=== PATIENT | female | born 1955 | race Caucasian/White ===

== ENCOUNTER 2017-10-01 11:48 | Emergency (ER) | payer OTHER ==
[~2017-10-01] VITALS: Ht 154.9 cm; Wt 65.8 kg
[2017-10-01] MEDS ORDERED: ASPIRIN325 MG PO (12:12)
[2017-10-01] MEDS ORDERED: FLOMAX0.4 MG PO (13:20)
== END 2017-10-01 13:40 | disposition home or self-care (01) ==
LOC: ED 11:48
DX: N23 Unspecified renal colic (principal); Z79.82 Long term (current) use of aspirin
CPT/HCPCS: 81001; 96372; 99283; J1885

== ENCOUNTER 2018-11-21 18:31 | Emergency (ER) | payer OTHER ==
[~2018-11-21] VITALS: Ht 154.9 cm; Wt 54.4 kg
[~2018-11-21 18:31] MED LIST: ASPIRIN325 MG PO; FLOMAX0.4 MG PO
[2018-11-21] MEDS ORDERED: NORCO 5-325 TA1 EACH PO (21:24)
[2018-11-21] MEDS ORDERED: CRUTCH1 EACH (21:24)
[2018-11-22] MEDS ORDERED: MULTI VITAMIN1 EACH PO (16:57)
== END 2018-11-21 22:08 | disposition home or self-care (01) ==
LOC: ED 18:31
DX: S82.142A Displaced bicondylar fracture of left tibia, initial encounter for closed fracture (principal); Z79.82 Long term (current) use of aspirin; W19.XXXA Unspecified fall, initial encounter
CPT/HCPCS: 73560; 73700; 99284-25

== ENCOUNTER 2018-11-22 16:40 | Inpatient (IN) | payer OTHER ==
[~2018-11-22] VITALS: Ht 154.9 cm; Wt 55.3 kg
[~2018-11-22 16:40] MED LIST changes: +CRUTCH1 EACH; +NORCO 5-325 TA1 EACH PO
[2018-11-22] MEDS ORDERED: MULTI VITAMIN1 EACH PO (16:57)
--- NOTE | 2018-11-22 17:27 | NUR ---
PATIENT HERE TODAY FOR PREADMISSION APPOINTMENT. SHE WILL BE HAVING AN OPEN REDUCTION INTERNAL FIXATION OF LEFT TIBIAL PLATEAU WITH BONE GRAFTING ON 11/29/18. SHE AND HER DAUGHTER LIMA REPORT SHE IS THE CAREGIVER FOR HER AND WAS TALKED TO ABOUT THE SWING BED PROGRAM HERE AT THE HOSPITAL FOR AFTER SURGERY. SHE HAS NO STEPS INTO THE HOME, THERE IS A RAMP. NO STEPS INSIDE THE HOME. THEY HAVE A TUB/SHOWER COMBO WITH A SHOWER CHAIR CURRENTLY. SHE DOES NOT HAVE A PREFERENCE FOR PHYSICAL THERAPY LONG IT IS A PREFERED PROVIDER WITH HER INSURANCE. THIS INFORMATION WILL BE SENT TO DR CALVO OFFICE AND CASE MANAGEMENT FOR FURTHER FOLLOW UP.
[2018-11-29] MEDS ORDERED: ADVIL200 M1 PO (10:36)
[2018-11-29] MEDS ORDERED: PROBIOTIC1 EAC1 PO (10:38)
--- NOTE | 2018-11-29 18:36 | NUR ---
11/29/18 183 Lior Nielson 1811 PT ARRIVED TO PACU. REACTIVE TO STIMULI. [address] AT 9L. VITALS STABLE. 1814 PT DROWSY. 02 DECREASED TO 6 L VIA M. PT RESTING. [address] PT [address] TO VOICE. DR[address] CALVO AT BEDSIDE TALKING WITH PT. PT RATES PAIN 4/10. DENIES NAUSEA. BRACE IN PLACE. CMS INTACT.
--- NOTE | 2018-11-29 18:55 | NUR ---
patient was admitted to the floor on ra with no c/o sob o2 saturations at 98%. pulse ox placed and vitals taken and iv fluid hung. cms intact to the left leg and prerna wrap with brace in place. patient is alert and oriented at this time and pain is tolerable at 4/10.
--- NOTE | 2018-11-29 19:00 | NUR ---
BEDSIDE REPORT RECEIVED FROM OFFGOING RN. PT DENIES NEEDS AT THIS TIME. CALL LIGHT IN REACH.
--- NOTE | 2018-11-29 19:10 | NUR ---
BEDSIDE REPORT RECEIVED FROM OFFGOING RN. PT RESTING IN BED, PARTICIPATES IN REPORT. PT DENIES NEEDS AT THIS TIME. CALL LIGHT IN REACH, ROOM IN VIEW OF RN STATION.
--- NOTE | 2018-11-29 19:20 | NUR ---
CHARGE NURSE REPORT RECEIVED FROM JONATHAN. PT REQUESTING SOME FOOD, WILL NOTIFY ROOM SERVICE MANAGER FOR SOME.
--- NOTE | 2018-11-29 21:31 | NUR ---
PT SITTING UP IN BED, JUST FINISHED [employer]. TOLERATING WELL. PT ASSESSMENT COMPLETE. PT RATES PAIN 04/04. PT EXPRESSES CONCERN REGARDING PRN OXYCODONE, STATES SHE DOES NOT LIKE TO TAKE NARCOTICS. MEDICATION EDUCATION PROVIDED. PRN OXYCODONE ADMINISTERED. PT DENIES NAUSEA OR SOB. PT REPORTS NUMBNESS TO LLE. ABLE TO FEEL SENSATION TO L ANKLE, UNABLE TO ACCURATELY STATE WHERE MACHINE SET UP OPERATOR PAPER GOODS IS TOUCHING ON L FOOT. R FOOT WNL. PEDAL PULSES PALPABLE. SCD'S AND HEEL PROTECTORS IN PLACE. MARIA E HOSE APPLIED TO R FOOT AT THIS TIME. PT WOULD LIKE TO WAIT FOR PAIN PILL TO START WORKING TO APPLY L MARIA E HOSE. CRYOCUFF IN PLACE TO L KNEE. DRESSING C/D/I AND BRACE IN PLACE TO LLE. PT DENIES FURTHER NEEDS AT THIS TIME. CALL LIGHT IN REACH.
--- NOTE | 2018-11-29 23:05 | NUR ---
PT ASSISTED TO BEDSIDE COMMODE AND BACK TO BED WITH 2PA AND FWW. PT TOLERATED WELL. PT RATES PAIN 4/10, STATES THAT PAIN IS TOLERABLE AT THIS TIME. MARIA E PACHECO APPLIED TO LLE AT THIS TIME. PT DENIES FURTHER NEEDS AT THIS TIME. CALL LIGHT WITHIN REACH.
--- NOTE | 2018-11-30 00:37 | NUR ---
PT ASSESSMENT COMPLETE. PT STATES PAIN WELL CONTROLLED AT THIS TIME. PT DENIES NAUASEA AND SOB. DRESSING TO LLE C/D/I. BRACE IN PLACE TO L KNEE. MARIA E HOSE, SCD'S, AND HEEL PROTECTORS IN PLACE BILATERALLY. PT ABLE TO FEEL TOUCH TO TOP OF FOOT, CANNOT ACCURATELY REPORT TOUCH TO TOES ON LLE. PEDAL PULSES PALPABLE. PT DENIES FURTHER NEEDS AT THIS TIME. CALL LIGHT WITHIN REACH.
--- NOTE | 2018-11-30 03:51 | NUR ---
PT ASSISTED TO COMMODE AND BACK TO BED WITH 2 PA AND FWW. PT TOLERATED VERY WELL, ABLE TO MOVE HER LEG WITH MINIMAL ASSITANCE. PT REPORTS SELF LIMITING WATER INTAKE DUE TO NOT WANTING TO GET UP TO BATHROOM. EDUCATION PROVIDED, ANOTHER BAG OF MAINTENANCE FLUIDS INITIATED. PT STATES SHE WILL DRINK MORE WATER, PROVIDED. PT DENIES FURTHER NEEDS AT THIS TIME. CALL LIGHT IN REACH.
--- NOTE | 2018-11-30 07:30 | OR ---
[facility] [address], [place] [address] Signed DATE OF OPERATION: 11/29/2018 SURGEON: Nathalie Asif MD PREOPERATIVE DIAGNOSIS: Schatzker II left tibial plateau fracture. POSTOPERATIVE DIAGNOSIS: Schatzker II left tibial plateau fracture. PROCEDURE PERFORMED: Open reduction and internal fixation of left tibia. SPECIMEN COLLECTOR: KRISTIN Rucker. Cami was present in critical positioning, retraction, and wound closure. ANESTHESIA: Spinal per Anesthesia. TOURNIQUET TIME: 46 minutes. IMPLANTS: A 6-hole proximal tibia plate with two 4.5 screws and four 5.0 screws. BRIEF HISTORY: Meghan is a 63-year-old female with history of a fall while trying to lift her . He fell against her leg creating a valgus stress. This was last week. Risks and benefits of operative treatment were discussed with her. Once she consented, the knee swelling gone down, we brought her to the operating room. After adequate anesthesia, she was placed on the operating room table and placed on a hip bump, a well-padded proximal thigh tourniquet was placed as well. The leg was then prepped and draped in a standard sterile fashion and exsanguinated using Esmarch bandage. Tourniquet inflated to 225 mmHg. The hockey stick incision was made along the proximal lateral tibia created through skin and subcutaneous tissue. The anterior compartment was opened up and the muscle was elevated off the tibia. The transverse arthrotomy was then made in the lateral compartment and the lateral meniscus was elevated to allow visualization of the lateral tibial plateau. I could see the depressed segments after cleaning out all of the blood clot. We found the anterior split in the tibial condyle and opened that up Electronically Signed By: NATHALIE ASIF MD 11/30/18 0730 PATIENT NAME: MEGHAN SANCHES OPERATIVE REPORT DATE OF : 57 REPORT #: [id number] PHYSICIAN: NATHALIE ASIF MD PCP: NO PRIMARY CARE PHYSICIAN REPORT IS CONFIDENTIAL AND NOT TO BE RELEASED WITHOUT AUTHORIZATION [facility] [address], [place] [address] Signed just a little bit to release pressure on the fragments. Then using a bone tamp we were able to elevate the tibial plateau under direct visualization until it was just slightly hyperreduced. Once this was accomplished, the lateral wall was closed back down and a 2-0 K-wire was passed across the tibia in the subarticular position. The plate was then threaded over this and held in position using a single screw distally and image intensifier was brought in, radiographs showed good reduction and good alignment of the plate. The three proximal locking screws were then placed and the oblique screw was placed and another screw was placed distally. Once these were accomplished, final radiograph showed good reduction, good placement of the screws and plate, and reduction was maintained. The wound was copiously irrigated with antibiotic solution including the arthrotomy. The lateral meniscus was allowed to fall back down into position. The arthrotomy was closed using #1 Vicryl. The fascia was then closed using 0 Stratafix, subcutaneous tissue with 2-0 Stratafix, and the skin with rahat. Wound was dressed with a Mepilex dressing, ABD, and Hira wrap. The patient was awakened and taken to recovery room in satisfactory condition. All sponge, needle, and instrument counts were correct. Nathalie Asif MD BA/MODL /[id number] Copies: ~ Electronically Signed By: NATHALIE ASIF MD 11/30/18 0730 PATIENT NAME: MEGHAN SANCHES DELMIS OPERATIVE REPORT DATE OF : 57 REPORT #: [id number] PHYSICIAN: NATHALIE ASIF MD PCP: NO PRIMARY CARE PHYSICIAN REPORT IS CONFIDENTIAL AND NOT TO BE RELEASED WITHOUT AUTHORIZATION
--- NOTE | 2018-11-30 07:38 | NUR ---
0710 report received from Doreen INMAN. Call light and personal items within reach. Pt states she is comfortable.
--- NOTE | 2018-11-30 07:47 | NUR ---
[employer] INTERVETION AND COMMUNICATION FORM RECIEVED REGARDING DUPLICATE SENNOSITES 1 TAB PO BID. CLARRIFIED THIS WITH DR. CALVO WHO STATED THAT ONE OF THESE ORDERS IS TO BE D/C'D.
--- NOTE | 2018-11-30 08:26 | NUR ---
PATIENT SITTING UP IN BED EATING BREAKFAST. CALL LIGHT IN REACH. NO FURTHER NEEDS AT THIS TIME.
--- NOTE | 2018-11-30 09:25 | NUR ---
PATIENT IN BED RESTING. CRYO FILLED. FRESH WATER GIVEN. CALL LIGHT IN REACH. NO FURTHER NEEDS AT THIS TIME.
--- NOTE | 2018-11-30 11:10 | NUR ---
Pt resting in her bed stating her pain remains at a 6/10 and was medicated for pain. Dressing remains CDI and cryo cuff is in place with ice water in the cuff. Teds and scds remain in place.
--- NOTE | 2018-11-30 11:55 | NUR ---
0930 PT HAS BEEN TAKING PO FLUIDS WELL AND THE IV WAS SALINE LOCKED PER ORDERS.
--- NOTE | 2018-11-30 12:40 | NUR ---
Pt resting in her bed eating her lunch. She states her knee pain is a 3 and her left ankle pain is a 5 after going for a walk. The ankle appers normal at this time. Rocio states her pain is acceptable to her at this time.
--- NOTE | 2018-11-30 13:15 | NUR ---
MED REC COMPLETE
--- NOTE | 2018-11-30 13:29 | NUR ---
PATIENT IN BED. BP HIGHER THEN USUAL, RN NOTIFIED. FRESH WATER GIVEN. CRYO FILLED. CALL LIGHT IN REACH. NO FURTHER NEEDS AT THIS TIME.
--- NOTE | 2018-11-30 16:22 | NUR ---
PT STATES HER LEFT KNEE AND ANKLE PAIN IS A 6, PT WAS MEDICATED ORDERED. X-RAY RESULTS ON THE LEFT ANKLE PENDING. PT ASSISTED TO THE BEDSIDE COMMODE WHICH SHE TOLERATED WELL. PT BACK TO BED AT THIS TIME.
--- NOTE | 2018-11-30 19:05 | NUR ---
SHIFT REPORT RECEIVED. PATIENT REPORTS PAIN IN HER ANKLE AND REQUEST AN ICE PACK WHICH WAS PROVIDED TO HER. SHE FEELS THAT HER LEFT FOOT IN NUMB WHEN SHE FLEXES AT THE ANKLE. FOOT HAS SENSATION WHEN ASSESSED BY MYSELF BUT PATIENT REPORTS THIS "NUMB" FEELING OR PRESSURE. CMS INTACT. WILL CONTINUE TO MONITOR.
--- NOTE | 2018-11-30 21:00 | NUR ---
EVENING MEDS GIVEN PER ORDER. PATIENT REPORTS PAIN IN HER LEFT ANKLE DESCRIBED "A TIGHT BAND, DEEP IN MY ANKLE". SHE ALSO REPORTS THAT SHE FEELS A NUMB SENSATION WHEN SHE FLEXES HER LEFT ANKLE. CMS INTACT, NO SWELLING NOTED. BRACE IN PLACE. CRYO ON LEFT KNEE. PAIN THERE IS MINIMAL 11/04. WOUND CONVERED WITH SURGICAL DRESSING AND DENI WRAP. PATIENT DENIES NAUSEA. ABD IS SOFT. LUNGS ARE CLEAR. VS STABLE. ASSISTED PATIENT UP TO THE [facility], NON-WEIGHT BEARING IN LEFT LEG. PATIENT TOLERATED VERY WELL. ASSISTED PATIENT BACK TO BED, ELEVATED LEFT LEG ON [address] ON L ANKLE. PATIENT DENIES FURTHER NEEDS AT THIS TIME.
--- NOTE | 2018-11-30 22:30 | NUR ---
PRN PAIN MEDS PROVIDED FOR 7/10 PAIN LEFT ANKLE. PATIENT REPORTED SOME RELIEF AFTER THE EXTREMITY WAS REPOSTIIONED. PATIENT IS VERY EMOTIONAL ABOUT HER SITUTATION WITH HER AT HOME, SAT WITH PATIENT TO PROVIDE ACTIVE LISTENING AND REASSURANCE. WWILL DISCUSS WITH CASE MANAGEMENT IN THE MORNING. PATIENT DENIES ANY NEEDS AT THIS TIME. CALL LIGHT IN REACH.
--- NOTE | 2018-12-01 00:40 | NUR ---
1 PA TO THE BEDSIDE COMMODE USING WALKER AND BACK TO BED. CALL LIGHT IN REACH.
--- NOTE | 2018-12-01 01:00 | NUR ---
PATIENT BACK IN BED AFTER USING CAMMOD. ASSURED BRACE AND CRYO WERE IN PLACE. PATIENT REPORTS SOME RELIEF IN HER ANKLE PAIN WITH PRN TORADOL AND THE ICE. PATIENT STATES "IT'S JUST HARD TO GET COMFORTABLE AND SLEEP WHILE LAYING ON MY BACK". ASSISTED HER WITH PILLOW PADDING UNDER HER ARMS AND HIPS TO PROVIDE EXTRA SUPPORT. PATIENT REPORTS FEELING COMFORTABLE. CALL LIGHT IN REACH.
--- NOTE | 2018-12-01 05:15 | NUR ---
PATIENT PROVIDED WITH PRN TORADOL FOR PAIN 01/02. PATIENT REPORTS PAIN "ALL OVER". PATIENT REQUESTING TO TAKE HER BRACE OFF. WILL CONTACT THE MD. ICE PACKED REAPPLIED TO ANKLE. CRYO REFILLED. PATIENT DENIES TOILETING NEEDS. CMS INTACT IN LEFT LOWER EXTREMITIES. DENI WRAP REAPPLIED DUE TO LOOSENING FROM TRANSFERS. ABD AND MEPILEX IN PLACE.
--- NOTE | 2018-12-01 06:03 | NUR ---
SPOKE WITH . OKAY TO LEAVE BRACE OFF WHILE PATIENT IN BED. MAKE SURE TO PLACE IT ON FOR TRANSFERS.
--- NOTE | 2018-12-01 06:06 | NUR ---
PATIENT RESTED ON AND OFF THROUGHOUT THE SHIFT. PAIN CONTROLLED WITH PRN TORADOL AND COLD THERAPY. 1PA W/FWW TO BSC. PATIENT NON-WEIGHT BEARING, TOLERATES WELL. DRESSING CDI. BRACE WHILE IN BED. MARIA E HOSE BILATERALLY, SCDS ON RIGHT LEG. IV SL. VS STABLE. URINE OUTPUT QS.
--- NOTE | 2018-12-01 07:05 | NUR ---
RECIEVED BEDSIDE REPORT FROM HENNY CASTANEDA. PT IN BED, SLEEPING SOUNDLY. PERSONAL SUPPLIES AND CALL LIGHT IN REACH.
--- NOTE | 2018-12-01 07:59 | NUR ---
PT PLANS TO RETURN HOME AND STATES SHE WILL BE AGAIN CARING FOR HER DISABLED .
--- NOTE | 2018-12-01 09:24 | NUR ---
PT UP, AMBULATING IN HALLWAY WITH P.T., USING GAIT BELT AND FWW, WITH MINIMAL ASSIST.
--- NOTE | 2018-12-01 12:04 | NUR ---
PT REPORTED 4/10 PAIN TO LEFT KNEE. GAVE TORADOL 15 MG IV PRN. PT SITTING UP IN BED EATING LUNCH. DRESSING TO LEFT KNEE C/D/I. PT REPORTS SENSTATION INTACT TO LLE, BUT REPORTS "A LITTLE" TINGLING TO LEFT FOOT. PEDAL PULSES PALPABLE, STRONG, CAP REFILL LESS THAN 2 SECONDS.
--- NOTE | 2018-12-01 13:25 | NUR ---
PT SITTING UP IN BED. REPORTS PAIN IS WELL CONTROLLED TO LEFT KNEE, DENIES LEFT ANKLE PAIN. DRESSING TO LEFT KNEE C/D/I. PT'S PEDAL PULSES PALPABLE, MOTION TO LEFT LEG WEAK, PT REPORTS SENSATION INTACT, BUT CONTINUES TO REPORT "A LITTLE BIT OF TINGLING" TO LEFT FOOT.
--- NOTE | 2018-12-01 15:55 | NUR ---
PT UP, AMBULATING IN [place] WITH PHYSICAL THERAPY WITH FWW AND GAIT BELT, TOLERANCE GOOD. PT BACK TO ROOM, TO BED. DENIED NEED FOR PAIN MEDICATION, REPORTED THAT SHE IS COMFORTABLE AT THIS TIME. DENIED NEEDS. PERSONAL SUPPLIES AND CALL LIGHT IN REACH.
--- NOTE | 2018-12-01 19:15 | NUR ---
SHIFT REPORT RECEIVED. PATIENT ON THE PHONE. DENIES NEEDS AT THIS TIME.
--- NOTE | 2018-12-01 21:05 | NUR ---
PATIENT PROVIDED WITH SCHEDULED SENNS, SHE HAS NOT HAD A BM THIS VISIT BUT REPORTS THAT IS NORMAL FOR HER. SHE DENIES FEELING CONSTIPATED OR BLOATED. ABD IS SOFT, NONTENDER, WITH ACTIVE BOWEL SOUNDS. ENCOUARGED PATIENT TO DRINK PLENTY OF FLUIDS WITH HER MEDS. PATIENT REPORTS GOOD PAIN CONTROL WITH SCHEDULED TORADOL AND COLD THERAPY. CMS INTACT IN LEFT LEG. DRESSING CDI. BRACE ON AT THIS TIME. MARIA E HOSE BILATERALLY. SCD ON RIGHT. HELL PROTECTORS IN USE. PATIENT IS SL, IV SITE WNL. LUNGS ARE CLEAR. PATIENT'S IS IN THE ED AT THIS TIME AND PATIENT REQUEST SHE GO SEE HIM. DISCUSSED WITH COMPUTER ARTIST. PATIENT'S DAUGHTER WILL GO DOWN TO VISIT HIM AND UPON HIS ADMISSION OR DISCHARGE SHE WILL VISIT HIM, NOT IN THE ED. PATIENT IS VERY AGREEABLE TO THIS PLAN. PATIENT DENIES FURTHER NEEDS. CALL LIGHT IN REACH.
--- NOTE | 2018-12-01 22:54 | NUR ---
V/S AND I&O DONE AND CHARTED. 1PA TO THE BATHROOM AND BACK TO BED USING WALKER. CRYO AND ICE WATER REFILLED. SCD, HEEL PROTECTOR AND CRYO ARE BACK ON. SIDE TABLE AND CALL LIGHT WITHIN REACH.
--- NOTE | 2018-12-01 23:19 | NUR ---
PATIENT RESTING IN BED. SHE REPORTS FEELING STRESSED ABOUT HER 'S HEALTH HE IS IN OUR ED. PROVIDED REASSURANCE. PATIENT DENIES ANY PAIN. NO NEEDS AT THIS TIME.
--- NOTE | 2018-12-02 | NUR ---
SCHEDULED TORADOL PROVIDED. PATIENT REPORTS PAIN 6/10 IN LEFT KNEE AND ANKLE. COLD THERAPY IN PLACE. PATIENT DENIES FURTHER NEEDS. CALL LIGHT IN REACH.
--- NOTE | 2018-12-02 01:18 | NUR ---
ASSISTED PATIENT UP TO THE BATHROOM. PATIENT AMBULATED WITH FWW AND TOE TOUCH ONLY ON LEFT LEG. PATIENT TOLERATED WELL. PATIENT'S IS NOW IN THE CCU, USING WC THIS RN ACCOMPANIED PATIENT OVER TO VISIT HER .
--- NOTE | 2018-12-02 01:45 | NUR ---
PATIENT RETURNED TO HER ROOM. ASSISTED INTO BED. POSITIONED FOR COMFORT. COLD THERAPY IN USE. SCD AND HEEL PROTECTORS ON. PATIENT REPORTS BEING COMFORTABLE. CALL LIGHT IN REACH.
--- NOTE | 2018-12-02 04:00 | NUR ---
PATIENT APPEARS TO BE SLEEPING SOUNDLY. RR 16. CALL LIGHT IN REACH.
--- NOTE | 2018-12-02 06:23 | NUR ---
PATIENT'S PAIN WAS WELL CONTROLLED WITH SCHEDULED TORADOL AND COLD THERAPY. PATIENT AMULATES WELL W/FWW, NON-WEIGHT BEARING ON LEFT FOOT. BRACE ON FOR TRANSFERS. DRESSING ON LEFT LEG, MEPILEX AND ABD COVERED WITH DENI WRAP. LEFT HEEL PROTECTORS, MARIA E HOSE, AND SCD IN USE. CRYO CUFF AND ICE PACKS TO AFFECTED AREAS. PATIENT TOLERATING REGULAR DIET.
--- NOTE | 2018-12-02 08:00 | NUR ---
RECEIVED REPORT AT 0700, FOUND PT IN BED SOMEWHAT AWAKE. PT ASKED TO VISIT HER IN CCU TODAY.
--- NOTE | 2018-12-02 09:42 | NUR ---
FAXED CHART NOTES TO [facility] TO AUTH FOR SWING BED. RECIEVED 7 DAY AUTH STARTING 12/03/18 FROM [facility].
--- NOTE | 2018-12-02 10:33 | NUR ---
PATIENT SITTING UP IN CHAIR. VITAL SIGNS AND I&O DONE. LOW BLOOD PRESSURE. RN NOTIFIED. LINENS CHANGED. CALL LIGHT WITHIN REACH. NO OTHER NEEDS AT THIS TIME
--- NOTE | 2018-12-02 11:07 | NUR ---
BP THIS AM ARE A LITTLE LOW. PT HAS BEEN RUNNING LOW WHILE HERE. PAIN IS WELL CONTROLLED. DRESSING ON LEFT KNEE IS C/D/I. PEDIS PULSE IS +1 BUT TOES ARE WARM TO TOUCH. THERE IS STILL SOME EDEMA ON HER LEFT ANKLE. PT WANTS TO VISIT IN CCU TODAY.
--- NOTE | 2018-12-02 11:33 | NUR ---
SBA FROM CHAIR TO BED. PT WITH MINIMAL ASSIST. BRACE ON LEFT LEG. CRYOCUFF PLACED, HEEL PROTECTORS AND SCD TO RLE. CALL LIGHT IN REACH. WATER REFRESHED. DENIES FURTHER NEEDS.
--- NOTE | 2018-12-02 12:19 | NUR ---
PT IS IN CCU VISITING HER AND EATING LUNCH WITH HIM. PT WALKED FROM HER ROOM TO CCU.
--- NOTE | 2018-12-02 13:33 | NUR ---
PATIENT SITTING UP IN CHAIR. FRIEND IN ROOM. VITAL SIGNS AND I&O DONE. CALL LIGHT WITHIN REACH. NO OTHER NEEDS AT THIS TIME
--- NOTE | 2018-12-02 14:00 | NUR ---
PAIN IS MINIMAL AT THIS TIME. PT HAS VISITORS IN ROOM. NO NEW CONCERNS NOTED SO FAR.
--- NOTE | 2018-12-02 14:46 | NUR ---
PATIENT SITTING UP IN CHAIR. FRIEND IN ROOM. CRYO FILLED. CALL LIGHT WITHIN REACH. NO OTHER NEEDS AT THIS TIME
--- NOTE | 2018-12-02 17:33 | NUR ---
PT OVERALL DID VERY WELL TODAY. PT WAS ABLE TO WALK FROM HER ROOM TO THE CCU AND BACK. PAIN IS WELL CONTROLLED WITH PRN AND SCHEDULED PAIN MEDICATIONS. TORADOL IV 15MG WAS THE ONLY PAIN MEDICATION GIVEN TODAY. THERE IS STILL AN ISSUE IN REGARDS TO HER REFUSING TO GO TO A SNF. HE THINKS SHE WILL TAKE CARE OF HIM. IT SEEMS THAT THIS PT HAS TOURBLE TELLING HER THAT SHE IS NOT ABLE TO CARE FOR HIM WHILE SHE IS HEALING. THIS ISSUE IS BEING ADDRESSED BY CASE MANAGEMENT.
--- NOTE | 2018-12-02 18:18 | NUR ---
PATIENT IN BED. FRIENDS IN ROOM. VITAL SIGNS AND I&O DONE. CALL LIGHT WITHIN REACH. NO OTHER NEEDS AT THIS TIME
--- NOTE | 2018-12-02 18:51 | NUR ---
PT CALL LIGHT ON. PT REQUESTS ASSISTANCE UP TO RESTROOM. THIS RN TO BEDSIDE. SBA, FWW UP TO RESTROOM. PT VOIDS WITHOUT ISSUE. NEW SOCKS PROVIDED. PT BACK TO BED. CRYO CUFF, SCD'S IN PLACE. PT WOULD LIKE TO VISIT HER LATER THIS EVENING. SOFT IRON INSPECTOR WILL BE NOTIFIED. NO ADDITIONAL REQUESTS OR COMPLAINTS. BED RAILS UP. CALL LIGHT WITHIN REACH.
--- NOTE | 2018-12-02 19:02 | NUR ---
IN ROOM FOR REPORT, PT IS AWAKE IN BED TALKING ON THE PHONE. SHE DENIES NEEDS AT THIS TIME. CALL LIGHT IS CLOSE.
--- NOTE | 2018-12-02 21:08 | NUR ---
VITALS AND I&OS DONE AND CHARTED. HELPED PT TO THE BATHROOM AND BACK TO BED WITH HER FWW. CRYO AND ICE PACK FILLED. FRESH ICE WATER GIVEN. BEDSIDE TABLE AND CALL LIGHT IN REACH.
--- NOTE | 2018-12-02 21:35 | NUR ---
IN ROOM TO ADMINISTER MEDICATIONS AND ASSESS PT. SHE REPORTS PAIN LOW AT THIS TIME AND IT IS WELL CONTROLLED BY TORADOL. HER DRESSING IS CDI AT THIS TIME AND SHE HAS THE BRACE ON IN BED. SHE WOULD LIKE TO KEEP IT ON FOR A WHILE AND MAY WANT IT OFF LATER. SHE REPORTS A TIGHT SENSATION IN HER LEFT ANKLE. AES IS IN PLACE AT THIS TIME AND SHE IS TAKING A BREAK FROM THE HEEL PROTECTORS PER HER REQUEST. CRYOCUFF IS ALSO IN PLACE. SHE WOULD LIKE TO VISIT HER IN CCU LAMAR, ADVISED PT WE WILL CHECK WITH HIS CCU NURSE. PT DENIES FURTHER NEEDS AND CALL LIGHT IS CLOSE.
--- NOTE | 2018-12-02 23:05 | NUR ---
PT CALLED D/T SCD'S BEEPING, SHE DENIES FURTHER NEEDS. CALL LIGHT IS CLOSE.
--- NOTE | 2018-12-03 00:05 | NUR ---
WOKE PT TO ADMINISTER IV TORADOL. PT RATES PAIN AT 2/10 AT THIS TIME. SHE DENIES FURTHER NEEDS AND CALL LIGHT IS CLOSE.
--- NOTE | 2018-12-03 02:59 | NUR ---
HELPED PT TO THE BATHROOM AND BACK TO THE CHAIR WITH HER FWW. CRYO FILLED. BEDSIDE TABLE AND CALL LIGHT IN REACH.
--- NOTE | 2018-12-03 03:09 | NUR ---
pt UP TO TOILET, ASSISTED BY CHRIS SÁNCHEZ. CRYOCUFF ICE REFRESHED BY CHRIS, GONZALO. ASSESSMENT DONE. pt STATED PAIN 2/10. SLIGHT EDEMA NOTED BEHIND LEFT ANKLE. DENI WRAP CDI, BRACE ON. CRYOCUFF APPLIED. AES, SCD ON. REFUSED HEEL PROTECTORS AT THIS TIME. UP IN CHAIR. NO REQUESTS AT THIS TIME. CALL LIGHT WITHIN REACH.
--- NOTE | 2018-12-03 06:04 | NUR ---
VITALS AND I&OS DONE AND CHARTED. CRYO FILLED. FRESH WATER GIVEN. BEDSIDE TABLE AND CALL LIGHT IN REACH. PT NEEDS NOTHING MORE AT THIS TIME.
--- NOTE | 2018-12-03 06:12 | NUR ---
MEDICATION DUE AND ADMINISTERED. pt REPORTED 2/10 PAIN. NO REQUESTS AT THIS TIME. CALL LIGHT WITHIN REACH.
--- NOTE | 2018-12-03 06:29 | NUR ---
pt RESTED ON AND OFF DURING SHIFT. PAIN CONTROLLED WITH SCHEDULED MEDICATIONS. DRESSING CDI. CRYOCUFF, BRACE, AES, AND SCD ON. REFUSED HEEL PROTECTORS AT THIS TIME. VOIDING QS. 1PA, FWW. IV SL. TOLERATING REGULAR DIET. PLAN TO TRANSITION TO SWING BED. USES CALL LIGHT APPROPRIATELY.
--- NOTE | 2018-12-03 08:00 | NUR ---
RECEIVED REPORT AT 0700 AND FOUND PT SLEEPING IN BED. NO NEW CONCERNS NOTED AT THIS TIME.
--- NOTE | 2018-12-03 09:39 | NUR ---
PATIENT IN BED. OCCUPATIONAL THERAPIST IN ROOM. VITAL SIGNS AND I&O DONE. CALL LIGHT WITHIN REACH. NO OTHER NEEDS AT THIS TIME.
--- NOTE | 2018-12-03 12:34 | DS ---
[facility] [address], [place] [address] Signed ADMISSION DATE: 11/29/2018 DISCHARGE DATE: 12/03/2018 ADMISSION DIAGNOSIS: Left Schatzker II tibial plateau fracture. DISCHARGE DIAGNOSIS: Left Schatzker II tibial plateau fracture. PROCEDURE PERFORMED THIS HOSPITALIZATION: ORIF, left tibia. BRIEF HISTORY: Meghan is a 63-year-old female who suffered a ground level fall while trying to lift her fracturing her tibia. She had radiographs and CT scan, which confirmed the split depression fracture. Once the swelling go down, risks and benefits of operative treatment discussed with her and she elected to proceed. DESCRIPTION OF PROCEDURE: Once consent was obtained, she was taken to the operating room. After adequate anesthesia, she underwent the above-named procedure and tolerated well. She was taken to the recovery room and subsequently to the orthopedic floor. She was placed on oxycodone and Toradol for pain control and with Tylenol and did well. She was seen by Physical Therapy, and was slow to mobilize and unsteady in her gait and strength. She was kept on DVT prophylaxis of SCDs, TEDs, and Xarelto 10 mg p.o. daily. She will be discharged to swing bed for continued inpatient rehab to work on balance, strength, gait with a walker. Toe-touch weightbearing on her left lower extremity. She also did have some ankle pain and swelling that was evaluated with an x-ray showed negative for fracture and just mild swelling along the posterior lateral border. Because she is nonweightbearing on that side, we will let this heal without too much intervention. Nathalie Asif MD BA/DEANGELO /[id number] Electronically Signed By: NATHALIE ASIF MD 12/03/18 1234 PATIENT NAME: MEGHAN SANCHES DELMIS DISCHARGE SUMMARY DATE OF : 57 REPORT #: [id number] PHYSICIAN: NATHALIE ASIF MD PCP: NO PRIMARY CARE PHYSICIAN REPORT IS CONFIDENTIAL AND NOT TO BE RELEASED WITHOUT AUTHORIZATION [address] [address] Signed Copies: ~ Electronically Signed By: NATHALIE ASIF MD 12/03/18 1234 PATIENT NAME: MEGHAN SANCHES DISCHARGE SUMMARY DATE OF : 57 REPORT #: [id number] PHYSICIAN: NATHALIE ASIF MD PCP: NO PRIMARY CARE PHYSICIAN REPORT IS CONFIDENTIAL AND NOT TO BE RELEASED WITHOUT AUTHORIZATION
== END 2018-12-03 09:30 | disposition swing bed (61) | DRG 494 ==
LOC: DSVR 11-29 10:20 → MS 11-29 12:00
PROVIDERS: ADMIT Specialist
PROC: 3E0T3BZ Introduction of Anesthetic Agent into Peripheral Nerves and Plexi, Percutaneous Approach (ICD-10-PCS; 2018-11-29)
PROC: 3E0T33Z Introduction of Anti-inflammatory into Peripheral Nerves and Plexi, Percutaneous Approach (ICD-10-PCS; 2018-11-29)
PROC: 0QSH04Z Reposition Left Tibia with Internal Fixation Device, Open Approach (ICD-10-PCS; principal; 2018-11-29 12:00)
DX: S82.142A Displaced bicondylar fracture of left tibia, initial encounter for closed fracture (principal); G89.18 Other acute postprocedural pain; R26.81 Unsteadiness on feet; M25.572 Pain in left ankle and joints of left foot; M25.472 Effusion, left ankle; W03.XXXA Other fall on same level due to collision with another person, initial encounter; Z87.440 Personal history of urinary (tract) infections; Z79.1 Long term (current) use of non-steroidal anti-inflammatories (NSAID); Z79.82 Long term (current) use of aspirin; Z79.899 Other long term (current) drug therapy
CPT/HCPCS: 01480; 36415; 73560; 73610; 80048; 85025; 97110; 97116; 97162; 97166; 97530; C1713; C1769; J0690; J1100; J1885; J2250; J2370; J2405; J2704; J2795; J3010; J3475; J7120

== ENCOUNTER 2018-12-03 09:30 | Inpatient (IN) | payer OTHER ==
[~2018-12-03] VITALS: Ht 154.9 cm; Wt 55.3 kg
[~2018-12-03 09:30] MED LIST changes: +ADVIL200 M1 PO; +MULTI VITAMIN1 EACH PO; +PROBIOTIC1 EAC1 PO
--- NOTE | 2018-12-03 10:00 | NUR ---
PT WAS MADE SWG BED AT 0930. PT HAS NO NEW ISSUES OR CONCERNS. PAIN IS 0/10 AT THIS TIME. PEDIS PULSES ARE +2, LEFT ANKLE EDEMA IS LESS TODAY AND PT IS NOT BOTHERED BY IT ANYLONGER. NO NEW CONCERNS AT THIS TIME.
--- NOTE | 2018-12-03 10:05 | NUR ---
PATIENT IN BED. OCCUPATIONAL THERAPIST IN ROOM. VITAL SIGNS AND I&O DONE. CALL LIGHT WITHIN REACH. NO OTHER NEEDS AT THIS TIME
--- NOTE | 2018-12-03 10:25 | NUR ---
SWING BED ACCOUNT; MED REC COMPLETE WHEN PATIENT WAS IN-PATIENT STATUS.
--- NOTE | 2018-12-03 12:00 | NUR ---
PATIENT ASKS FOR WALK TO CCU TO VISIT HER FOR A FEW MINUTES. PATIENT BACKS TO ROOM. PATIENT BACKS TO CHAIR. CALL LIGHT WITHIN REACH. NO OTHER NEEDS AT THIS TIME
--- NOTE | 2018-12-03 12:00 | NUR ---
PT IS WALKING IN HALLWAY. PT IS DOING WELL.
--- NOTE | 2018-12-03 12:30 | NUR ---
PT TO BE SWING TODAY. SITTING IN CHAIR-ALERT AND ORIENTED. PT QUICKLY BEGAN TO SHARE WITH ME THE CHALLENGE SHE FACES WITH HER AND HIS SPECIAL NEEDS AND THE ATTITUDE HE HAS. I LET HER SHARE, GAVE SOME QUALITY CONTROL ANALYST AND HAD PRAYER WITH HER. WILL CONTINUE TO FOLLOW
--- NOTE | 2018-12-03 12:43 | NUR ---
Spoke with Rocio, she lives at home with spouse who is disabled and requires extensive care. She feels she can go home and care for self with assist from friends. Would recommend OT as pt is toe touch only and will need help to cook and complete house hold chores at home. Pt states she has also had difficulty in the past accepting help in the past. She has a daughter but does not want to burder her. Does mot have a PCP at this time, and will notify [facility] to assist her.
--- NOTE | 2018-12-03 14:05 | NUR ---
PT AT THIS TIME HAS VISITORS IN ROOM.
--- NOTE | 2018-12-03 14:33 | NUR ---
PATIENT'S CRYO FILLED. NO OTHER NEEDS AT THIS TIME
--- NOTE | 2018-12-03 14:36 | NUR ---
PATIENT HAS FRIENDS VISITING HER. PATIENT UP IN HER CHAIR.
--- NOTE | 2018-12-03 15:11 | NUR ---
PATIENT SITTING UP IN CHAIR. BEDBATH DONE. PATIENT USING A CLEAN GOWN. CALL LIGHT WITHIN REACH. PATIENT WALKS TO USE BATHROOM. PATIENT BACKS TO CHAIR. CALL LIGHT WITHIN REACH. NO OTHER NEEDS AT THIS TIME
--- NOTE | 2018-12-03 16:01 | NUR ---
PT WALKED WITH PT AND DID VERY WELL. PT IS BACK IN ROOM. PAIN IS 1/10. NO NEW CONCERNS.
--- NOTE | 2018-12-03 16:25 | NUR ---
PT OVERALL DID WELL TODAY. PAIN IS VERY WELL CONTROLLED. PT IS MOVING WELL, DRESSING IS C/D/I. HOME SITUATION STILL NEEDS ATTENTION AND NEEDS TO BE FIGURED OUT. NO NEW CONCERNS NOTED.
--- NOTE | 2018-12-03 16:31 | NUR ---
TOOK OVER CARE OF THIS SWING BED PATIENT AT THIS TIME, PATIENT IS UP TO THE CHAIR WITH HER LEGS ELEVATED CRYO CUFF IN PLACE AND DRESSING TO THE LEFT KNEE THAT IS CDI. PATIENT DENIES ANY PAIN OR NEEDS AT THIS TIME AND CMS IS INTACT.
--- NOTE | 2018-12-03 17:46 | NUR ---
PATIENT IN BED. I&O DONE. CALL LIGHT WITHIN REACH. NO OTHER NEEDS AT THIS TIME
--- NOTE | 2018-12-03 20:06 | NUR ---
ASSESSMENT AND MEDICATION DUE. pt STATED PAIN 2/10 "DISCOMFORT". DEMONSTRATED ABILITY TO AMBULATE SAFELY. NO IV. DRESSING CDI, CRYOCUFF, AES, SCD, HEEL PROTECTORS ON. CALL LIGHT WITHIN REACH. WILL GO VISIT DOWN [place].
--- NOTE | 2018-12-04 01:14 | NUR ---
ROUNDED ON pt. RESTING WITH EYES CLOSED, RESPIRATIONS REGULAR, RATE = 16. CALL LIGHT WITHIN REACH.
--- NOTE | 2018-12-04 03:48 | NUR ---
ROUNDED ON pt. RESTING IN CHAIR WITH EYES CLOSED, RESPIRATIONS REGULAR, RATE = 16. CALL LIGHT WITHIN REACH.
--- NOTE | 2018-12-04 04:51 | NUR ---
ROUNDED ON pt. RESTING IN CHAIR WITH EYES CLOSED, RESPIRATIONS REGULAR. RATE = 14. CALL LIGHT WITHIN REACH.
--- NOTE | 2018-12-04 05:34 | NUR ---
pt RESTED MOST OF NIGHT. DRESSING CDI. BRACE ON, CRYOCUFF, AES, SCD, AND HEEL PROTECTORS ON. NO IV ACCESS PER MD. TOLERATING REGULAR DIET. PAIN CONTROLLED. AMBULATED IN HALLS X1. USES CALL LIGHT APPROPRIATELY.
--- NOTE | 2018-12-04 06:09 | NUR ---
ROUNDED ON pt. REFRESHED CRYOCUFF. DISCUSSED "DISCOMFORT" MANAGEMENT AND SLEEPING. pt UP TO TOILET. WHITEBOARD UPDATED. CALL LIGHT WITHIN REACH.
--- NOTE | 2018-12-04 07:30 | NUR ---
PATIENT REPORT RECEIVED FROM MERVAT INMAN AT THIS TIME. PATIENT IS RESTING IN BED WITH NO QUESTIONS OR CONCERNS CURRENTLY. PAIN IS TOLERABLE AND BRACE TO LEFT LEG IS ON CMS IS INTACT.
--- NOTE | 2018-12-04 09:11 | NUR ---
PATIENT AMBULATED WITH PHYSICAL THERAPY TO HER HUSBANDS ROOM, FROM 114 TO 108. SHE IS STEADY ON HER FEET WHEN USING A FWW TO AMBULATE. BRACE HAS STAYED ON THE LEFT LEG WITH DRESSING TO THE LEFT KNEE CDI WITH DENI WRAP, CMS INTACT. BREAKFAST ORDERED AND ASSESSMEMT COMPLETE
--- NOTE | 2018-12-04 10:30 | NUR ---
PATIENT SITTING UP IN BED. VITAL SIGNS AND I&O DONE. LOW DYASTOLIC BLOOD PRESSURE. RN NOTIFIED. CALL LIGHT WITHIN REACH. NO OTHER NEEDS AT THIS TIME
--- NOTE | 2018-12-04 14:00 | NUR ---
PATIENT IN BED. PATIENT WALKS TO USE BATHROOM USING A WALKER. ONE PERSON ASSISTING. PATIENT BACKS TO BED. I&O DONE. ICE WATER GIVEN. CALL LIGHT WITHIN REACH. NO OTHER NEEDS AT THIS TIME
--- NOTE | 2018-12-04 15:59 | NUR ---
dressing to left leg wrapped with a garbage sack and patient up to the shower with cutting room supervisor assistance. patient tolerating shower well and denies any pain.
--- NOTE | 2018-12-04 16:13 | NUR ---
PATIENT IN BED. PATIENT WALKS TO BATHROOM TO TAKE A SHOWER. PATIENT TAKES A SHOWER. ONE PERSON ASSISTING. PATIENT USING A CLEAN GOWN. PATIENT BACKS TO BED. ICE WATER GIVEN. WARM BLANKET PROVIDED. CALL LIGHT WITHIN REACH. NO OTHER NEEDS AT THIS TIME
--- NOTE | 2018-12-04 17:28 | NUR ---
PATIENT BACK TO BED AFTER USING THE TOILET, SHE DENIES ANY PAIN AT THIS TIME AND DINNER TRAY GIVEN TO HER AT THIS TIME.
--- NOTE | 2018-12-04 18:05 | NUR ---
PATIENT SITTING UP IN CHAIR. I&O DONE. CALL LIGHT WITHIN REACH. NO OTHER NEEDS AT THIS TIME
--- NOTE | 2018-12-04 20:36 | NUR ---
ASSESSMENT AND MEDICATIONS DUE. pt REPORTED PAIN OF 11/04. STATED THAT SHE HAS "DISCOMFORT" THAT KEEPS HER AWAKE AT NIGHT. ASKED FOR ADVIL. ASSESSMENT DONE. MEDICATION GIVEN (SEE MAR). DRESSING CDI. BRACE, CRYOCUFF, AES, HEEL PROTECTORS, SCD ON. AMBULATED X1. CALL LIGHT WITHIN REACH.
--- NOTE | 2018-12-04 20:37 | NUR ---
CALLED DR CALVO FOR PRN PAIN MEDICATION. NEW ORDER INPUT.
--- NOTE | 2018-12-04 21:23 | NUR ---
VITALS AND I&OS DONE AND CHARTED. FRESH ICE WATER GIVEN. HELPED HER TO THE BATHROOM AND BACK TO BED. BEDSIDE TABLE AND CALL LIGHT IN REACH.
--- NOTE | 2018-12-04 22:27 | NUR ---
GAVE PRN PAIN MED PER REQUEST TO DECREASE "DISCOMFORT" FOR SLEEP. CALL LIGHT WITHIN REACH. NO OTHER REQUESTS AT THIS TIME.
--- NOTE | 2018-12-05 00:26 | NUR ---
ROUNDED ON pt. RESTING WITH EYES CLOSED, RESPIRATIONS REGULAR, RATE = 14. CALL LIGHT WITHIN REACH.
--- NOTE | 2018-12-05 01:46 | NUR ---
SCD ALARMING. pt DISCONNECTED FOR A MOMENT TO REPOSITION. SCD ON. pt REPORTED "I SLEPT WELL FOR A FEW HOURS BUT THEN I FELT THE TYLENOL JUST SITTING ON MY STOMACH". OFFERED FOOD, pt ACCEPTED A BOWEL OF CEREAL. CRYOCUFF REFRESHED. CALL LIGHT WITHIN REACH.
--- NOTE | 2018-12-05 04:10 | NUR ---
ROUNDED ON pt. RESTING WITH EYES CLOSED, RESPIRATIONS REGULAR. RATE = 18. CALL LIGHT WITHIN REACH.
--- NOTE | 2018-12-05 05:06 | NUR ---
pt RESTED ON AND OFF DURING SHIFT. STATED THE TYLENOL HELPED HER GET TO SLEEP. DRESSING CDI. BRACE, CRYOCUFF, AES, SCD, AND HEEL PROTECTORS ON. AMBULATED IN [place] X1. NO IV PER ORDER. VOIDING QS. INDEPENDENT WITH FWW. TOLERATING REGULAR DIET. USES CALL LIGHT APPROPRIATELY.
--- NOTE | 2018-12-05 09:24 | NUR ---
PT UP WORKING WITH PHYSICAL THERAPIST IN THERAPY ROOM, WORKING ON DOING STAIRS.
--- NOTE | 2018-12-05 11:00 | NUR ---
PT SITTING AT HER 'S BEDSIDE IN ROOM 108, HOLDING 'S HAND. DENIES NEEDS.
--- NOTE | 2018-12-05 11:52 | NUR ---
PATIENT WALKS IN HALLWAY USING A WALKER TO VISIT HER IN ROOM 108 AND BACKS TO HER ROOM AND BED.
--- NOTE | 2018-12-05 13:23 | NUR ---
PATIENT RESTING IN BED. I&O DONE. ICE WATER GIVEN. CALL LIGHT WITHIN REACH. NO OTHER NEEDS AT THIS TIME
--- NOTE | 2018-12-05 14:10 | NUR ---
PT IN BED, AWAKE, ALERT, ORIENTED X 4. DENIED NEEDS. REPORTED THAT PAIN TO LEFT LEG IS WELL CONTROLLED. CMS TO LLE INTACT, DRESSING C/D/I.
--- NOTE | 2018-12-05 17:47 | NUR ---
PATIENT IN BED. FAMILY IN ROOM. PATIENT WALKS TO USE BATHROOM. ONE PERSON ASSISTING. I&O DONE. CALL LIGHT WITHIN REACH. NO OTHER NEEDS AT THIS TIME
--- NOTE | 2018-12-05 17:59 | NUR ---
PT DOING WELL, PARTICIPATED IN PHYSICAL THERAPY THIS SHIFT. PT UP WITH FWW WITH BRACE ON LLE, WITH 1 PERSON MINIMAL TO STANDBY ASSIST. DRESSING TO LLE C/D/I, CMS INTACT. PT REPORTED PAIN WELL CONTROLLED THROUGHOUT SHIFT, DENIED NEED FOR PRN ANALGESICS. PT ON RA, BOWEL TONES ACTIVE X 4 QUADRANTS, BM THIS SHIFT, HRR, LUNGS CTA. PT ALERT, ORIENTED X 4.
--- NOTE | 2018-12-05 19:34 | NUR ---
RECEIVED REPORT FROM HENNY BAINS. pt ALERT AND AWAKE VISITING. PAIN 2 AT THIS TIME. PLAN MADE FOR EVENING. WHITEBOARD UPDATED. CALL LIGHT WITHIN REACH.
--- NOTE | 2018-12-05 21:33 | NUR ---
pt VISITING . PERMISSION TO DO ASSESSMENT AND GIVE MEDS. ASSESSMENT DONE. DRESSING CDI. BRACE ON. pt AMBULATED IN CANT[place] TO 'S ROOM WITHOUT ISSUE WITH FWW. MEDICATIONS GIVEN (SEE MAR). PROVIDED CEREAL AND MILK. STATED PAIN 12/05. NO FURTHER REQUESTS AT THIS TIME. CALL LIGHT WITHIN REACH.
--- NOTE | 2018-12-05 22:40 | NUR ---
FRESH ICE WATER GIVEN AND CRYO FILLED.
--- NOTE | 2018-12-05 23:59 | NUR ---
ROUNDED ON pt. RESTING WITH EYES CLOSED, RESPIRATIONS REGULAR, RATE = 16. CALL LIGHT WITHIN REACH.
--- NOTE | 2018-12-06 02:38 | NUR ---
ROUNDED ON pt. RESTING WITH EYES CLOSED, RESPIRATIONS REGULAR, RATE = 16. CRYOCUFF REFRESHED. CALL LIGHT WITHIN REACH.
--- NOTE | 2018-12-06 04:15 | NUR ---
ROUNDED ON pt. RESTING WITH EYES CLOSED, RESPIRATIONS REGULAR. RATE = 16. CALL LIGHT WITHIN REACH.
--- NOTE | 2018-12-06 05:02 | NUR ---
pt RESTED MOST OF SHIFT. TYLENOL AT HS FOR "DISCOMFORT". DRESSING CDI. BRACE, CRYOCUFF, AES, SCD, AND HEEL PROTECTORS ON. AMBULATED IN [place] X1. NO IV PER ORDER. VOIDING QS. INDEPENDENT WITH FWW. TOLERATING REGULAR DIET. USES CALL LIGHT APPROPRIATELY.
--- NOTE | 2018-12-06 07:28 | NUR ---
RECIEVED BEDSIDE REPORT FROM HENNY GONZALEZ. PT IN BATHROOM. DENIED NEEDS AT THIS TIME.
--- NOTE | 2018-12-06 07:55 | NUR ---
PT IN BED, PROVIDED WITH FRESH COFFEE PER PT'S REQUEST. PT RATED PAIN TO LEFT KNEE 1/10, DENIED NEED FOR PRN ANALGESIC. PERSONAL SUPPLIES AND CALL LIGHT IN REACH. CMS TO LLE INTACT. BRACE TO LLE IN PLACE, DRESSING TO LEFT KNEE C/D/I.
--- NOTE | 2018-12-06 09:40 | NUR ---
PT AMBULATING IN HALLWAYS WITH PHYSICAL THERAPY, TOLERATING WELL. USING FWW, HAS BRACE ON TO LLE.
--- NOTE | 2018-12-06 10:17 | NUR ---
PATIENT SITTING UP IN BED COLORING. FRESH WATER GIVEN. CRYO FILLED. CALL LIGHT IN REACH. NO FURTHER NEEDS AT THIS TIME.
--- NOTE | 2018-12-06 12:28 | NUR ---
PT IN BED, EATING LUNCH. DENIED NEEDS. DRESSING TO LLE C/D/I. PT REPORTED THAT PAIN TO LEFT KNEE IS TOLERABLE, DENIED NEED FOR PRN ANALGESIC. PESONAL SUPPLIES AND CALL LIGHT IN REACH.
--- NOTE | 2018-12-06 12:59 | NUR ---
PT'S IN TO VISIT WITH PT, SITTING AT PT'S BEDSIDE. PT HAS PERSONAL SUPPLIES AND CALL LIGHT IN REACH. PT ATE 95% OF HER LUNCH. DENIED NEEDS.
--- NOTE | 2018-12-06 13:38 | NUR ---
PT UP AMBULATING IN HALLS. WORKING HARD WITH Sophie GAVE ENCOURAGEMENT, SHE THANKED ME, WILL CONTINUE TO FOLLOW NEEDED
--- NOTE | 2018-12-06 14:48 | NUR ---
PATIENT IN BED TALKING ON PHONE. FRESH WATER GIVEN. CRYO FILLED. CALL LIGHT IN REACH. NO FURTHER NEEDS AT THIS TIME.
--- NOTE | 2018-12-06 18:05 | NUR ---
PT DOING WELL. UP WITH FWW WITH STANDBY ASSIST, WORE BRACE TO LLE THROUGHOUT SHIFT. PT TOLERATED AMBULATION WELL, COMPLIANT WITH ONLY PLACING 25% OR LESS OF WEIGHT TO LLE. WORKED WITH PHYSICAL THERAPY THIS SHIFT. PT DENIED NEED FOR PRN ANALGESIA THIS SHIFT, REPORTED PAIN WELL CONTROLLED WITH SCHEDULED CELEBREX. PT TOLERATED REGULAR DIET WELL. LUNGS CLEAR TO AUSCULTATION, HEART RATE REGULAR, BOWEL TONES ACTIVE. PT HAD 2 BMs THIS SHIFT. URINE OUTPUT QUANTITY SUFFICIENT. PT ALERT, ORIENTED X 4. DRESSING TO LEFT KNEE C/D/I, CMS TO LLE INTACT.
--- NOTE | 2018-12-06 19:10 | NUR ---
RECEIVED REPORT FROM HENNY BAINS. pt IN CHAIR VISITING WITH . NO REQUESTS AT THIS TIME.
--- NOTE | 2018-12-06 22:27 | NUR ---
ASSESSMENT AND MEDICATIONS DUE. pt RESTING IN BED. ASSESSMENT DONE. DRESSING CDI. BRACE, CRYOCUFF, AES, SCD, HEEL PROTECTORS ON. CEREAL AND MILK PROVIDED. MEDICATIONS GIVEN (SEE MAR). CALL LIGHT WITHIN REACH. NO FURTHER REQUESTS AT THIS TIME.
--- NOTE | 2018-12-07 00:26 | NUR ---
ROUNDED ON pt. RESTING WITH EYES CLOSED, RESPIRATIONS REGULAR. RATE = 16. CALL LIGHT WITHIN REACH.
--- NOTE | 2018-12-07 03:17 | NUR ---
ROUNDED ON pt. RESTING WITH EYES CLOSED, RESPIRATIONS REGULAR, RATE = 18. CALL LIGHT WITHIN REACH.
--- NOTE | 2018-12-07 07:25 | NUR ---
RECIEVED BEDSIDE REPORT AT PT'S DOORWAY PT WAS SLEEPING SOUNDLY. THIS RN IN TO PT'S ROOM TO CHECK ON PT, NO S/S DISTRESS/DISCOMFORT NOTED. WHITE BOARD UPDATED. PERSONAL SUPPLIES AND CALL LIGHT IN REACH.
--- NOTE | 2018-12-07 08:04 | NUR ---
PT DOING IN BED EXERCISES. BREAKFAST TRAY JUST NOW DELIVERED. PT RATES PAIN TO LEFT KNEE /. DRESSING TO LEFT KNEE C/D/I, CMS TO LLE INTACT. PT HAS PERSONAL SUPPLIES AND CALL LIGHT IN REACH. PT DECLINED MIRILAX THIS AM, SHE HAS BEEN HAVING MORE THAN ONE STOOL A DAY, AND THEY HAVE BEEN SOFT TO LOOSE. PT DECLINED FLU VACCINE, STATED THAT SHE DOES NOT WANT TO GET THIS.
--- NOTE | 2018-12-07 09:07 | NUR ---
PT ATE 100% OF HER BREAKFAST. IN BED, PERSONAL SUPPLIES AND CALL LIGHT IN REACH.
--- NOTE | 2018-12-07 10:15 | NUR ---
PT AMBULATING IN HALLWAY WITH JORGE WITH FWW, TOLERATING WELL. RATED PAIN TO LEFT KNEE 1-2/10, DENIED NEEDS.
--- NOTE | 2018-12-07 13:21 | NUR ---
PT SITTING UP IN BED, TALKING ON PHONE. DENIES NEEDS. PERSONAL SUPPLIES AND CALL LIGHT IN REACH. CRYO CUFF TO LEFT KNEE.
--- NOTE | 2018-12-07 14:38 | NUR ---
PT SEEMS TO BE DOING BETTER TODAY. SHE IS WORKING HARD TO IMPROVE AND GET BACK ON HER FEET-LITERALLY. SHE REQUESTED THE HIPAA RESTRICTIONS BE REMOVED ON HER ADMISSION. WILL FOLLOW UP WITH ADMITTING. EXTENDED A BLESSING, WILL FOLLOW
--- NOTE | 2018-12-07 14:46 | NUR ---
PT IN THERAPY ROOM WITH CARISSA, LAMINATED PLASTICS ASSEMBLER AND GLUER, PARTICIPATING IN PHYSICAL THERAPY. DENIED NEEDS. REPORTED THAT HER PAIN IS WELL CONTROLLED.
--- NOTE | 2018-12-07 14:53 | NUR ---
PT UP WALKING IN CANTRE[place] WITH FWW WITH CARISSA CROSSCUTTER. TOLERATING AMBULATION WELL.
--- NOTE | 2018-12-07 15:54 | NUR ---
PT IN ROOM 108, SITTING UP IN RECLINER AT 'S SIDE. WATCHING TV. REPORTS PAIN IS WELL CONTROLLED. DENIED NEEDS.
--- NOTE | 2018-12-07 16:53 | NUR ---
PT SITTING UP IN RECLINER IN ROOM 108, SITTING NEXT TO . PT REQUESTED TO EAT DINNER WITH HER , SO WILL BRING DINNER TO ROOM 108 FOR HER. PT HAS A CALL BUTTON IN REACH, AND HAS PERSONAL SUPPLIES IN REACH. PROVIDED WITH FRESH WATER. PT DENIED OTHER NEEDS AT THIS TIME.
--- NOTE | 2018-12-07 17:00 | NUR ---
PT HAS REPORTED THAT HER LEFT KNEE PAIN HAS BEEN WELL CONTROLLED WITH SCHEDULED MEDICATION THIS SHIFT. RATED PAIN TO LEFT KNEE 0-2/10 TODAY. PT WORKED WITH PHYSICAL THERAPY X 2 THIS SHIFT. BRACE TO LLE ALL SHIFT. DRESSING TO LEFT KNEE C/D/I, CMS TO LLE INTACT. PT REPORTED HAVING A SOFT TO LOOSE STOOL EARLY THIS AM, SO DECLINED MIRILAX. HAS HAD ANOTHER BM THIS SHIFT. NO IV ACCESS. PT TOLERATING REGULAR DIET. ALERT, ORIENTED X 4. IN TO VISIT HER IN ROOM 108 TWICE THUS FAR THIS SHIFT.
--- NOTE | 2018-12-07 19:13 | NUR ---
IN ROOM FOR REPORT. PT IS AWAKE IN BED SHE DENIES NEEDS AT THIS TIME. CALL LIGHT IS CLOSE.
--- NOTE | 2018-12-07 19:20 | NUR ---
CHARGE ROUNDING DONE WITH DAY SHIFT RN AND RAISA RN. PATIENT RESTING PEACEFULLY IN HER BED. NO NEEDS AT THIS TIME.
--- NOTE | 2018-12-07 22:06 | NUR ---
IN ROOM TO ASSESS PT. SHE DENIES THE NEED FOR SENNA TONIGHT SHE HAD SOFT /LIQUID BMS TODAY. SHE ALSO HAS TROUBLE SLEEPING WHILE SHE IS HERE, BROUGHT HER A WHITE NOISE MACHINE SHE SET TO FAN SETTING BECAUSE SHE USES A FAN TO SLEEP AT HOME. HER LEFT LEG DRESSING IS CDI AND SHE DENIES PAIN. WATER IS REFILLED AND SHE HAS MARIA E HOSE, AND CRYO ON LEFT LEG ALONG WITH THE BRACE. RT LEG HAS MARIA E HOSE AND SCD. SHE DENIES NEEDING THE HEEL PROTECTORS AT THIS TIME. CALL LIGHT IS CLOSE AND SHE DENIES FURTHER NEEDS.
--- NOTE | 2018-12-08 00:09 | NUR ---
PT IS RESTING WITH EYES CLOSED, RR IS EVEN AND NONLABORED. CALL LIGHT IS CLOSE.
--- NOTE | 2018-12-08 00:46 | NUR ---
PT REPORTS DISCOMFORT, SHE IS NOT ABLE TO GET TO SLEEP. GAVE PT TYLENOL AND CEREAL. SHE DENIES FURTHER NEEDS. CALL LIGHT IS WITHIN REACH.
--- NOTE | 2018-12-08 02:27 | NUR ---
PT IS RESTING WITH EYES CLOSED, RR IS EVEN AND NONLABORED. CALL LIGHT IS CLOSE.
--- NOTE | 2018-12-08 04:32 | NUR ---
PT IS RESTING WITH EYES CLOSED, RR IS EVEN AND NONLABORED. CALL LIGHT IS CLOSE.
--- NOTE | 2018-12-08 06:19 | NUR ---
PT IS RESTING WITH EYES CLOSED, RESPIRATIONS ARE EVEN AND NONLABORED. CALL LIGHT IS CLOSE.
--- NOTE | 2018-12-08 06:39 | NUR ---
PT IS VISITING WITH HER IN ROOM 108 AT THIS TIME.
--- NOTE | 2018-12-08 06:44 | NUR ---
PT HAD TROUBLE SLEEPING. SHE TRIED THE WHITE NOISE MACHINE. TYLENOL WAS GIVEN ONCE FOR DISCOMFORT, OTHERWISE SHE DENIES PAIN. BRACE IS IN PLACE ON LEFT LEG AND DRESSING IS CDI. SHE IS TO ONLY PUT 25% WB ON HER LEFT LEG. SHE HAS NO IV. SENNAKOT WAS HELD LASTNIGHT D/T MULTIPLE LOOSE STOOL.
--- NOTE | 2018-12-08 07:30 | NUR ---
PT RESTING SUPINE IN BED WITH LEFT KNEE BRACE ON AND POLAR ICE IN PLACE. BEDSIDE REPORT RECEIVED FROM HENNY MONACO. PT DENIES NEEDS AND STATES SHE IS IN 1 DISCOMFORT BUT THIS IS TOLERABLE. POLAR ICE REFILLED WITH ICE/WATER AND PT GIVEN FRESH H20, CALL LIGHT ALSO IN REACH. WHITE BOARD UPDATED.
--- NOTE | 2018-12-08 09:48 | NUR ---
PT RESTING IN SEMI FOWLERS POSITION IN BED, A/O AND APPEARS TO BE IN GOOD SPIRITS. PT DENIES PAIN. DSG TO LEFT KNEE IS CDI, BRACE IN PLACE WELL POLAR ICE. CMS TO LEFT FOOT INTACT. CALL LIGHT AND H20 IN REACH. HENNY AUGUST IN ADMINISTERING AM MEDICATIONS. NO NEEDS/CONCERNS VOICED.
--- NOTE | 2018-12-08 09:48 | NUR ---
PT SITTING UP IN BED ALERT AND ORIENTED.
--- NOTE | 2018-12-08 11:21 | NUR ---
FLU VACCINES D/C AT THIS TIME PATIENT SAID SHE DID NOT WANT THE VACCINE.
--- NOTE | 2018-12-08 11:56 | NUR ---
PT RESTING SUPINE IN BED, DENIES PAIN, LLE CMS INTACT. CALL LIGHT AND H20 IN REACH. PT DENIES NEEDS/CONCERNS AT THIS TIME.
--- NOTE | 2018-12-08 14:12 | NUR ---
PT SITTING UP IN BED, ALERT AND ORIENTED. APPEARS SHE IS WORKING ON BILLS, WILL STAY BRIEFLY. BROUGHT PT A PRAYER SHAWL-SHE WAS VERY PLEASED. RECEIVED A PHONE CALL FROM HER BOSS, WILL FOLLOW NEEDED
--- NOTE | 2018-12-08 15:49 | NUR ---
PT SITTING AT THE SIDE OF HER HUSBANDS BED IN ROOM 108, STATES SHE WOULD LIKE TO GO BACK TO HER ROOM. PT AMBULATES DOWN CANTRE[place] WITH SLOW BUT STEADY GAIT TO HER ROOM AND STATES GONZALO GERMAN AGREED TO ASSIST HER WITH A SHOWER. CALL LIGHT AND H20 IN REACH. GONZALO GERMAN NOTIFIED THAT PT IS BACK IN ROOM AND READY FOR ASSISTANCE WITH SHOWER. PT REQUESTS TO SPEAK WITH THE HOSPITALIST REGARDING HER HUSBANDS CARE. DR SCHROEDER NOTIFIED AND AGREES TO MEET WITH HER IF NOT TODAY THEN TOMORROW. WILL UPDATE PATIENT ON THIS AFTER HER SHOWER.
--- NOTE | 2018-12-08 15:58 | NUR ---
PATIENT WAS ABLE TO SHOWER SELF. SHE IS SET UP IN SHOWER AND LEG WRAPPED IN PLASTIC.
--- NOTE | 2018-12-08 16:40 | NUR ---
PT SITTING UP IN BED, COMBING HAIR. PT WAS INFORMED THAT DR SCHROEDER AGREES TO GO OVER HER HUSBANDS CARE WITH HER IF NOT THIS AFTERNOON THAN TOMORROW. CALL LIGHT, FRESH ICE WATER AND PERSONAL ITEMS ARE WITHIN REACH.
--- NOTE | 2018-12-08 17:51 | NUR ---
PT SITTING UP IN BED, CONVERSING ON CELL PHONE. CELEBREX ADMINISTERED PO, PT DENIES NEEDS. DINNER TRAY SET UP NEXT TO BED. CALL LIGHT AND H20 IN REACH. PT APPEARS TO BE IN NO DISTRESS. LEFT LEG BRACE IS IN PLACE.
--- NOTE | 2018-12-08 19:15 | NUR ---
CHARGE NURSE REPORT RECEIVED FROM GUERA AUGUST ACTUALLY VISITING HER IN ROOM 108.
--- NOTE | 2018-12-08 19:34 | NUR ---
IN ROOM FOR REPORT, PT IS IN HER HUSBANDS ROOM 108 AT THIS TIME. THEY BOTH DENY NEEDS. CALL LIGHT IS CLOSE.
--- NOTE | 2018-12-08 19:58 | NUR ---
SPOKE WITH DR CALVO ABOUT PT'S DIFFICULTY SLEEPING AT NIGHT. ORDERS RECEIVED FOR MELATONIN UP TO 5 MG. WILL START WITH 3MG DOSE AT HS.
--- NOTE | 2018-12-08 20:40 | NUR ---
WALKED WITH PT TO HER ROOM FROM HER HUSBANDS ROOM. VITALS AND I&OS DONE AND CHARTED. BEDSIDE TABLE AND CALL LIGHT IN REACH. FRESH ICE WATER GIVEN.
--- NOTE | 2018-12-08 20:50 | NUR ---
IN ROOM TO ASSESS PT AND ADMINISTER MEDICATIONS. SHE STATES SHE ONLY HAS DISCOMFORT AT THIS TIME AND WOULD RATE IT 0-1. SHE DENIES NEED FOR MEDICATION. SHE REPORTS MULITPLE STOOLS AND DENIES NEED FOR SENAKOT TONIGHT. SHE WALKED TO HUSBANDS ROOM FOR A WHILE AND IS BACK IN BED. SHE DENIES FURTHER NEEDS AT THIS TIME. CALL LIGHT IS CLOSE.
--- NOTE | 2018-12-08 23:10 | NUR ---
PT IS RESTING WITH EYES CLOSED, RR IS EVEN AND NONLABORED. CALL LIGHT IS CLOSE.
--- NOTE | 2018-12-09 00:42 | NUR ---
HELPED PT TO THE BATHROOM AND BACK TO BED WITH HER FWW. FILLED CRYO. BEDSIDE TABLE AND CALL LIGHT IN REACH.
--- NOTE | 2018-12-09 00:55 | NUR ---
WAS NOTIFIED THAT PT REQUESTED HER MELATONIN. UPON ENTERING THE ROOM THE PT WAS ALREADY ASLEEP. RR IS EVEN AND NONLABORED AND CALL LIGHT IS CLOSE.
--- NOTE | 2018-12-09 02:35 | NUR ---
PT IS RESTING WITH EYES CLOSED, RESPIRATIONS ARE EVEN AND NONLABORED. CALL LIGHT IS CLOSE.
--- NOTE | 2018-12-09 04:00 | NUR ---
PT IS RESTING WITH EYES CLOSED, RESPIRATIONS ARE EVEN AND NONLABORED. CALL LIGHT IS WITHIN REACH.
--- NOTE | 2018-12-09 05:10 | NUR ---
PT IS RESTING WITH EYES CLOSED, RESPIRATIONS ARE EVEN AND NONLABORED. CALL LIGHT IS CLOSE.
--- NOTE | 2018-12-09 06:07 | NUR ---
PT IS SBA WITH FWW AND AMBULATED TO HER HUSBANDS ROOM 108 LAST NIGHT. SHE DENIES PAIN AND REPORTS "A LITTLE DISCOMFORT" SHE HAS SCHEDULED CELEBREX BID. PT REPORTS TROUBLE SLEEPING SO RECEIVED ORDER FOR MELATONIN. DRESSING ON LEFT LEG IS CDI AND BRACE IS TO BE IN PLACE WHEN OUT OF BED AND TTWB AT 25%
--- NOTE | 2018-12-09 08:32 | NUR ---
MORNING ASSESSMENT DONE. PATIENT DENIES PAIN OR NAUSEA. PATIENT WOULD LIKE TO VISIT WITH HOSPITALIST TODAY ABOUT HER .
--- NOTE | 2018-12-09 10:26 | NUR ---
PATIENT SITTING UP IN BED KNITTING. CRYO FILLED. CALL LIGHT IN REACH. NO FURTHER NEEDS AT THIS TIME.
--- NOTE | 2018-12-09 10:30 | NUR ---
PT SITTING UP IN BED-ALERT AND ORIENTED. PT MENTIONED THAT SHE SLEPT WELL LAST NIGHT-BEST SINCE ADMISSION. SNUGGLED WITH HER P SHAWL AND GAVE HER COMFORT. PT IS LOOKING FORWARD PT P.T. SESSION-READY TO AMBULATE! EXTENDED A BLESSING,WILL FOLLOW NEEDED
--- NOTE | 2018-12-09 11:56 | NUR ---
PATIENT UP WITH PHYSICAL THERAPY, CAME TO VISIT SPOUSE.
--- NOTE | 2018-12-09 14:24 | NUR ---
PATIENT SITTING UP IN BED EATING LUNCH. CRYO CHECKED. CALL LIGHT IN REACH. NO FURTHER NEEDS AT THIS TIME.
--- NOTE | 2018-12-09 16:23 | NUR ---
VISITED WITH PT THIS AM FOR AWHILE, WE DISCUSSED PT PLANS FOR DC, SHE IS THINKING SHE MAY GO HOME WITH HER DAUGHTER AND THEN SHE STATES SHE FEELS LIKE SHE IS ABANDONING HIM AND SAYS SHE'LL FEEL GUILTY. WE ALSO DISCUSSED IF SOMEONE FROM [facility] CAN VISIT WITH HER AND SHE SAID NO.
--- NOTE | 2018-12-09 16:42 | NUR ---
PATIENT HAS DONE WELL TODAY, DENIES PAIN OR NAUSEA, UP TO AMBULATE WITH PHYSICAL THERAPY AND STANDBY ASSIST TO BATHROOM WITH WALKER. PATIENT LIKES TO KEEP LEG BRACE ON ALL THE TIME.
--- NOTE | 2018-12-09 21:09 | NUR ---
ASSISTED PT TO THE RESTROOM SBA WITH FWW. SHE WILL PULL THE CORD WHEN SHE IS DONE.
--- NOTE | 2018-12-09 21:28 | NUR ---
HELPED PT GET BACK TO HER BED FROM THE BATHROOM WITH HER FWW. BEDSIDE TABLE AND CALL LIGHT IN REACH. SHE NEEDS NOTHING MORE AT THIS TIME.
--- NOTE | 2018-12-09 23:16 | NUR ---
PATIENT RESTING QUIETLY IN BED WATCHING TV.
--- NOTE | 2018-12-09 23:17 | NUR ---
PATIENT RESTING QUIETLY, EYES CLOSED, RESPIRATIONS REGULAR AND EVEN AT 16.
--- NOTE | 2018-12-10 01:24 | NUR ---
PATIENT ON HER LEFT SIDE, EYES CLOSED, RESPIRATIONS REGULAR AND EEN AT 16, CALL LIGHT IN REACH.
--- NOTE | 2018-12-10 03:38 | NUR ---
PATIENT RESTING QUIETLY, EYES CLOSED, RESPIRATIONS, REGULAR AND EVEN AT 16.
--- NOTE | 2018-12-10 06:00 | NUR ---
I refilled patients cryo while she slept. she didnt need anything at this time. call light and bed side table within reach.
--- NOTE | 2018-12-10 06:17 | NUR ---
PATIENT'S DRESSING REMAINS CDI, WITH BRACE AND CRYO CUFF IN PLACE ON THE LEFT LEG. PATIENT RESTED QUIETLY MOST OF THE NIGHT, EYES CLOSED, RESPIRATIONS HAVE BEEN REGULAR AND EVEN FROM 16-18 ALL NIGHT. SCD TO RIGHT LEG. PATIENT HAS NOT HAD ANY C/O PAIN.
--- NOTE | 2018-12-10 07:10 | NUR ---
BEDSIDE HANDOFF REPORT RECEIVED FROM ASSOCIATE MERCHANT RN. PT SLEEPING, LEFT UNDISTURBED.
--- NOTE | 2018-12-10 07:45 | NUR ---
PT ASSISTED TO BATHROOM AND BACK TO BED. PT DENIES PAIN. PT ON ROOM AIR, LUNG SOUNDS CLEAR, DENIES SOB. PT REPORT OF NUBNESS TO LERTF HEEL, COMES AND GOES. LEFT LEG DRESSING CDI. PULSES PALPABLE, ABLE TO DORSI/PLANTAR FLEX, LEG BRACE IN PLACE. CRYOCUFF AND SCD TO RIGHT LEG, MARIA E HOSE IN PLACE. BREAKFAST AT BEDSIDE. PT DENIES OTHER NEEDS AT THIS TIME.
--- NOTE | 2018-12-10 09:39 | NUR ---
PATIENT SITTING UP IN BED AND PAINTING SOME DRAWINGS. VITAL SIGNS AND I&O DONE. CALL LIGHT WITHIN REACH. NO OTHER NEEDS AT THIS TIME
--- NOTE | 2018-12-10 11:15 | NUR ---
SPOKE WITH PATIENT SHE WAS HEADING OUT TO WALK IN [place] WITH STAFF. LEFT DAILY NEWSPAPER WITH HER IN ROOM. SHE STATES SHE IS FEELING WELL TODAY AND HAS NO QUESTIONS.
--- NOTE | 2018-12-10 11:23 | NUR ---
PT RESTING IN BED. PT DENIES PAIN. PT PROVIDED TOOTH BRUSH AND TOOTH PASTE. PT DENIES OTHER NEEDS AT THIS TIME.
--- NOTE | 2018-12-10 12:34 | NUR ---
PT DOING WELL, JUST FINISHED LUNCH AND WELL DRILLER IN TO TAKE PT FOR A WALK. WISHED HER WELL, WILL CONTINUE TO FOLLOW
--- NOTE | 2018-12-10 13:31 | NUR ---
PATIENT IN BED AND STILL TAKING LUNCH. I&O DONE. CALL LIGHT WITHIN REACH. NO OTHER NEEDS AT THIS TIME
--- NOTE | 2018-12-10 15:36 | NUR ---
CASE MANAGEMENT IN ROOM. PT DENIES NEEDS AT THIS TIME.
--- NOTE | 2018-12-10 16:40 | NUR ---
SPOKE AT LENGTH WITH PATIENT ON HER PLANS FOR DISCHARGE AND HER HUSBANDS PLANS FOR DISCHARGE. SHE STATES SHE IS NOT GOING HOME, SHE IS ARRANGING TO STAY WITH FRIENDS AND DAUGHTER TO CONTINUE HER HEALING. SHE STATES SHE KNOWS IF SHE GOES HOME HE WILL "MAKE ME TAKE CARE OF HIM AND I'LL DO IT BECAUSE I'LL FEEL GUILTY". SHE UNDERSTANDS THAT IS REFUSING TO GO TO REHAB. WE DISCUSSED AT LENGTH THAT HE IS DEPRESSED AND ANGRY SINCE LOSING HIS LEG. SHE STATES HE WON'T AGREE TO COUNSELING. SHE DENIES WANTING DOMESTIC VIOLENCE HELP. SHE STATES "I TRULY LOVE HIM, AND I'VE SEEN NOW THAT I CANNOT TAKE CARE OF HIM, I TRIED, AND I JUST CAN'T". SHE DISCUSSED IF THERE WAS ANYONE IN THE FAMILY OR FRIENDS WHO COULD TALK WITH HIM TO ENCOURAGE HIM TO REHAB. SHE STATES SHE CAN THINK OF A COUPLE PEOPLE HE MIGHT LISTEN TOO AND SHE WILL TRY TO SEE IF THEY CAN HELP. WE DISCUSSED THAT WE CANNOT MAKE HIM GO, THAT IF HE INSISTS ON GOING HOME, WE CANNOT STOP HIM. I DID TELL HER I CAN CONTACT [facility] AND ASK THEM TO GO CHECK ON HIM. WE DISCUSSED THAT HE ISN'T READY FOR DISCHARGE YET, THAT WE WILL KEEP TRYING TO CONVINCE HIM TO GO FOR HELP.
--- NOTE | 2018-12-10 17:10 | NUR ---
PT ASSISTED TO BATHROOM AND BACK TO BED. SCHEDULED CELEBREX GIVEN. PT DENIES PAIN. CYROCUFF ICE REFILLED. PT DENIES OTHER NEEDS AT THIS TIME.
--- NOTE | 2018-12-10 17:57 | NUR ---
PT HAD UNEVENTFUL DAY. PT HAS DENIED PAIN THROUGHOUT SHIFT. SBA WITH FWW, AMBULATED IN [place] WITH PT. CYROCUFF, SCD TO RLE, MARIA E HOSE, AND HEEL PROTECTORS IN PLACE. PT CONTINUES TO REPORT NUMBNESS THAT COMES AND GOES TO LEFT HEEL. DRESSING TO LLE CDI, BRACE IN PLACE. CMS INTACT, WITHOUT EDEMA.
--- NOTE | 2018-12-10 18:11 | NUR ---
PATIENT IN BED. FAMILY IN ROOM. I&O DONE. CALL LIGHT WITHIN REACH. NO OTHER NEEDS AT THIS TIME
--- NOTE | 2018-12-10 19:56 | NUR ---
PATIENT IN NO PAIN. REFUSED [place] FOR TONIGHT. PATIENT VISITING WITH A SPOUSE IN ANOTHER ROOM.
--- NOTE | 2018-12-10 21:08 | NUR ---
RN LIAISON ROUNDING REPORT. PT IN ROOM 108 VISITING HER . PT ASSISTED BACK TO HER ROOM WITH 1 PA AND FWW, TO BATHROOM, AND INTO BED. PT TOLERATED WELL. PT DENIES NEEDS AT THIS TIME. CALL LIGHT IN REACH.
--- NOTE | 2018-12-10 23:31 | NUR ---
PATIENT IN BED WATCHING TV, HAVING NO PAIN, CALL LIGHT IN REACH, INNO DISTRESS AT THIS TIME.
--- NOTE | 2018-12-11 02:12 | NUR ---
PATIENT RESTING QUIETLY SUPINE, EYES CLOSED, RESPIRATIONS REGULAR AND EVEN AT 16. CALL LIGHT IN REACH.
--- NOTE | 2018-12-11 03:39 | NUR ---
PATIENT RESTING QUIETLY SUPINE CALL LIGHT IN REACH, EYES CLOSED, RESPIRATIONS REGULAR IN EVEN AT A RATE OF 16.
--- NOTE | 2018-12-11 05:03 | NUR ---
PATIENT STARTED THE EVENING VISITING WITH HER SPOUSE. THEN PATIENT HAS RESTED WELL ALL NIGHT WITH UNCHANGED ASSESSMENT. DRESSING IS CDI TO LEFT KNEE. BRACE IS ON AND CRYO CUFF IN PLACE. SCD TO RIGHT LEG. RESPIRATIONS HAVE BEEN REGULAR AND EVEN THROUGHOUT THE NIGHT AND PATIENT HAS DENIED ANY PAIN. CURRENTLY STILL RESTING, EYES CLOSED, RESPIRATIONS REGULAR AND EVEN AT A RATE OF 16 AND CALL LIGHT IS IN REACH.
--- NOTE | 2018-12-11 05:18 | NUR ---
CRYO WAS FILLED AND ICE WATER WAS REFILLED. PT REMAINED SLEEPING WHILE GONZALO WALLACE AND I WERE IN THE ROOM.
--- NOTE | 2018-12-11 07:15 | NUR ---
BEDSIDE HANDOFF REPORT RECEIVED FROM FLASK MAKER RN. PT SLEEPING, LEFT UNDISTURBED.
--- NOTE | 2018-12-11 08:20 | NUR ---
PT RESTING IN BED, EATING BREAKFATS. PT LUNG SOUNDS CLEAR, ON ROOM AIR. PT DENIES PAIN. PT CONTINUES TO REPORT INTERMITTENT NUMBNESS TO LEFT HEEL, PULSES PALPABLE, ABLE TO PLANTAR/DORSI FLEX. CYOCUFF, SCD, MARIA E HOSE AND HEEL PROTECTORS IN PLACE. PT TOLERATING DIET, DENIES NAUSEA, BOWEL TONES ACTIVE, REFUSED SENNA. PT ASKING ABOUT DISCHARGE PLAN, DISCUSSED WITH PT. PT DENIES OTHER NEEDS AT THIS TIME.
--- NOTE | 2018-12-11 11:00 | NUR ---
PT UPDATED ON PLAN FOR DR. CALVO TO ROUND ON HER TODAY. PT RESTING IN BED. PT DENIES PAIN. PT DENIES OTHER NEEDS AT THIS TIME.
--- NOTE | 2018-12-11 13:50 | NUR ---
DR. CALVO NOTIFIED OF PT REPORT OF NUMBNESS TO LEFT HEEL, HE STATED THAT IT IS LIKELY DUE TO THE SWELLING IN HER KNEE AFFECTIGN THE NERVE AND IT WILL TAKE 6-8 MONTHS TO IMPROVE. PT UPDATED. PT DENIES OTHER NEEDS AT THIS TIME.
--- NOTE | 2018-12-11 17:16 | NUR ---
PT PROVIDED WITH SCHEDULED CELEBREX. PT DENIES PAIN. DAUGHTER AT BEDSIDE. PT DENIES OTHER NEEDS AT THIS TIME.
--- NOTE | 2018-12-11 17:59 | NUR ---
PT HAD UNEVENTFUL DAY. WALKED IN [place] WITH PT, SBA WITH WALKER. PT CONTINUES TO REPORT LEFT HEEL NUMBNESS, DR. CALVO IS AWARE. PT ON ROOM AIR, LUNG SOUNDS CLEAR. TOLERATING REGULAR DIET. LEFT LEG WITH DRESSING CDI, BRACE, AND CRYOCUFF. SCD, MARIA E HOSE AND HEEL PROTECTORS. PT VOIDING QS. PLAN FOR DC ON THURSDAY TO [facility].
--- NOTE | 2018-12-11 20:30 | NUR ---
PATIENT VISITING CURRENTLY WITH PATIENT IN ANOTHER PATIENT ROOM.
--- NOTE | 2018-12-11 22:29 | NUR ---
PATIENT IN BED, SCD ON RT LEG, LEFT LEG DRESSING CDI, BRACE ON, CRYO CUFF ON AND WITH FRESH ICE. FRESH ICE WATER GIVEN, PATIENT DENIED GETING SENNA TONIGHT. PATIENT SAID SHE HAS NO OTHER NEEDS AT THIS TIME AND IS GOING TO TRY AND GET SOME SLEEP.
--- NOTE | 2018-12-12 00:48 | NUR ---
PATIENT RESTING QUIETLY SUPINE, EYES CLOSED, RESPIRATIONS EVEN AND REGULAR AT 16. CALL LIGHT IN REACH.
--- NOTE | 2018-12-12 03:11 | NUR ---
PATIENT RESTING QUIETLY ON HER RIGHT SIDE, EYES CLOSED, RESPIRATIONS REGULAR AND EVEN AT 16. CALL LIGHT IN REACH.
--- NOTE | 2018-12-12 05:48 | NUR ---
PATIENT STARTED OUT VISITING WITH ANOTHER PATIENT SHE KNEW IN THEIR ROOM. PATIENT HAS BEEN EATING MEALS WELL, TAKING PO FLUIDS. HAS RESTED MOST OF THE NIGHT WITH EYES CLOSED, AND EVEN AND REGULAR RESPIRATIONS. SCD TO RIGHT LEG. LEFT KNEE DRESSING CLEAN DRY AND INTACT, WEARING BRACE AND CRYO-CUFF. PATIENT IS STILL CURRENTLY RESTING QUIETLY WITH EYES CLOSED AND EVEN AND REGULAR RESPIRATIONS.
--- NOTE | 2018-12-12 08:06 | NUR ---
patient is eating breakfast, she needed no assistance, patient is mostly independent with walker, patient asked to be walked down to her husbands room after she finishes her breakfast.
--- NOTE | 2018-12-12 08:14 | NUR ---
MORNING ASSESSMENT DONE. PATIENT SITTING UP IN BED TO EAT BREAKFAST, DENIES PAIN OR NAUSEA.
--- NOTE | 2018-12-12 09:05 | NUR ---
PATIENT AMBULATED DOWN HALLWAY WITH STANDBY ASSIST AND WALKER.
--- NOTE | 2018-12-12 12:15 | NUR ---
PATIENT RESTING IN BED, VISITING WITH FRIEND.
--- NOTE | 2018-12-12 15:23 | NUR ---
PATIENT HAS WORKED WITH PHYSICAL THERAPY TODAY, IS MOSTLY INDEPENDANT, WITH NURSING STANDBY ASSIST. APPETITE IS GOOD, NO PAIN NOTED. LEG DRESSING IS CDI WITH BRACE IN PLACE.
--- NOTE | 2018-12-12 17:42 | NUR ---
PATIENT SITTING UP IN BED. I&O DONE. PATIENT REQUESTS TO SEE HER . THIS LIGHT BULB REPLACER WALKS WITH THE PATIENT TO HER 'S ROOM. NO OTHER NEEDS AT THIS TIME
--- NOTE | 2018-12-12 19:03 | NUR ---
CHARGE NURSE REPORT RECEIVED FROM MATA. PT IN HER ROOM, 108. NO NEEDS.
--- NOTE | 2018-12-12 19:05 | NUR ---
REPORT RECEIVED FROM OFFGOING RN IN [place]. PT IN ROOM 108 VISITING WITH .
--- NOTE | 2018-12-12 20:41 | NUR ---
PT ASSISTED TO WALK DOWN [place] FROM 'S ROOM TO HER OWN. PT ASSESMENT COMPLETE. PT DENIES PAIN, NAUSEA, OR SOB. BRACE IN PLACE TO LLE. SURGICAL SITE COVERED WITH DRESSING. DRESSING C/D/I. PT REPORTS OCCASIONAL NUMBNESS TO LLE, ESPCIALLY HEEL, SHE STATES AT TIMES THIS NUMBNESS RADIATES TO FOOT. MARIA E HOSE TO BLE'S. SCD TO RLE. PT DECLINES HEEL PROTECTORS. CRYOCUFF TO LLE. ICE REFILLED TO CRYO. PT CONVERSES ABOUT PLAN FOR DC, DESIRE TO HAVE LIFE RETURN TO SOME SORT OF "NORMALCY", PT EAGER TO RETURN TO WORK WHEN ABLE, DISCUSSES PLAN TO GO TO OUT PT PHYSICAL THERAPY. PT DENIES FURTHER NEEDS AT THIS TIME. CALL LIGHT IN REACH.
--- NOTE | 2018-12-12 23:03 | NUR ---
CRYO CUFF REFILLED AND ICE WATER.
--- NOTE | 2018-12-12 23:30 | NUR ---
PT RESTING IN BED WITH EYES CLOSED. PT APPEARS TO BE SLEEPING. CALL LIGHT IN REACH.
--- NOTE | 2018-12-13 04:15 | NUR ---
PT SLEPT THROUGHOUT SHIFT. CELEBREX TREATING PAIN WELL. SBA/FWW. 25% WEIGHT BEARING TO LLE. BRACE TO LLE WHEN PT OOB. UO QS. 0 IV ACCESS. PLAN TO DC TODAY.
--- NOTE | 2018-12-13 08:22 | NUR ---
PT SITTING UP EATING BREAKFAST, SHE REPORTS NO PAIN THIS AM. NO NAUSE. SHE CONTINUES TO REPORT INTERMITTEN NUMBNESS AT LEFT HEEL AND MINIMAL AT RIGHT HEEL WELL. HEEL PROTECTORS PLACED.
--- NOTE | 2018-12-13 09:13 | NUR ---
PATIENT IN BED. PATIENT WALKS TO BATHROOM USING A WALKER TO TAKE A SHOWWER. PATIENT TAKES A SHOWER. ONE PERSON ASSISTING. PATIENT USING A CLEAN GOWN. PATIENT BACKS TO BED. VITAL SIGNS AND I&O DONE. CALL LIGHT WITHIN REACH. NO OTHER NEEDS AT THIS TIME.
--- NOTE | 2018-12-13 09:49 | NUR ---
PT UP AMBULATING WITH PHYSICAL THERAPY AT THIS TIME. PT REPORTS NO PAIN. PT DRESSING CLEAN INTACT. BRACE IN PLACE PER MD ORDERS.
--- NOTE | 2018-12-13 10:30 | NUR ---
PT CALL LIGHT ON. PT ASSISTED TO HUSBANDS ROOM TO VISIT, 1P STAND BY ASSIST, FWW. PT DENIES PAIN AND STATES SHE HAS NO ADDITIONAL REQUESTS OR COMPALINTS.
--- NOTE | 2018-12-13 11:20 | NUR ---
SPOKE WITH PATIENT IN ROOM. SHE WAS GETTING UP WITH NURSING TO GO VISIT HER IN ROOM 109. SHE STATES SHE IS FEELING GOOD, PAIN UNDER CONTROL AND IS FEELING MORE CONFIDENT IN MOVING. SHE IS HOPING TO DISCUSS WITH HIS MOVE TO A SENIOR LIVING FACILITY FOR INTENSE THERAPY. SHE IS STILL PLANNING ON STAYING WITH FAMILY AFTER HER DISCHARGE.
--- NOTE | 2018-12-13 11:30 | NUR ---
PT VISITING WITH SPOUSE AT THIS TIME.
--- NOTE | 2018-12-13 12:35 | NUR ---
THIS RN TAKING OVER CARE OF PT. REPORT RECEIVED FROM HENNY AUGUST. PT IN HUSBANDS ROOM VISITING. SBA, FWW BACK TO HER OWN ROOM STATING SHE WANTS "TO REST." ASSESSMENT DONE. CMS INTACT, DRESSING C/D/I, BRACE IN PLACE. SCD, MARIA E HOSE AND CRYO CUFF IN PLACE. PT DENIES PAIN AND NAUSEA AND IS ANTICIPATING DISCHAGE LATER TODAY. NO ADDITIONAL REQUESTS OR COMPALINTS AT THIS TIME. BED RAILS UP. CALL LIGHT WITHIN REACH.
--- NOTE | 2018-12-13 13:15 | NUR ---
THIS RN TO ROOM TO CHECK ON PT. PT VISITING WITH DYE MAKER. PT UPDATED ON PLAN OF CARE. DRESSING CDI, MARIA E PACHECO, SCD, AND HEEL PROTECTORS IN PLACE. NO REQUESTS OR COMPLAINTS AT THIS TIME. BED RAILS UP. CALL LIGHT WITHIN REACH.
--- NOTE | 2018-12-13 13:42 | NUR ---
PATIENT IN BED. PATIENT WALKS USING A WALKER TO USE BATHROOM. ONE PERSON ASSISTING. PATIENT BACKS TO BED. I&O DONE. CALL LIGHT WITHIN REACH. NO OTHER NEEDS AT THIS TIME
[2018-12-13] MEDS ORDERED: CELECOXIB200 MG PO (13:49)
[2018-12-13] MEDS ORDERED: SENNA LAX8.6 MG PO (13:50)
[2018-12-13] MEDS ORDERED: OXYCODONE HCL5 MG PO (13:50)
--- NOTE | 2018-12-13 14:00 | NUR ---
PT SITTING UP IN BED, WORKING ON PAYROLL FROM WORK. SHE SAID SHE IS TRYING TO KEEP HER MIND OCCUPIED. PT SHARED WITH ME ABOUT HER G SON THAT LIVES IN [place] AND IS ONE OF TWO STUDENTS FROM [place]-THE REST ARE [employer] STUDENTS. IT HAS BEEN HARD ON HER NOT BEING ABLE TO WATCH HIS GAMES SINCE ADMISSION. PT HOPES TO GET WELL ENOUGH TO ATTEND.EXTENDED A BLESSING, WILL FOLLOW NEEDED
--- NOTE | 2018-12-13 14:26 | NUR ---
DISCHARGE INSTRUCTIONS REVIEWED WITH PT. PT VERBALIZES UNDERSTANDING AND STATES HER QUESTIONS HAVE BEEN ANSWERED. PT STATES SHE IS PLANNING TO CALL DR. CALVO OFFICE BECAUSE OF A MESSAGE SHE HAS ALREADY RECEIVED. PT STATES SHE IS NOT PLANNING TO TAKE OXYCODONE BUT UNDERSTANDS THAT SHE CANNOT DRIVE IF TAKING THIS PAIN MEDICATION. PHARAMCIST TO BEDSIDE TO REVIEW MEDICATIONS. PT VERBALIZES UNDERSTANDING AND STATES ALL HER MEDICATION QUESTIONS HAVE BEEN ANSWERED. PT AWAITING DAUGHTERS ARRIVAL. NO ADDITIONAL QUESTIONS OR CONCERNS AT THIS TIME.
--- NOTE | 2018-12-13 16:12 | NUR ---
THIS RN TO ROOM TO CHECK ON PT. PT TALKING ON PHONE AND WORKING ON COMPUTER. PT CONTINUES TO AWAIT DAUGHTERS ARRIVAL. PT STATES SHE HAS NO REQUESTS OR COMPLAINTS AT THIS TIME, DENIES PAIN AND NAUSEA. CALL LIGHT WITHIN REACH.
--- NOTE | 2018-12-13 16:49 | NUR ---
AFTERNOON ASSESSMENT DONE. PT ASSISTED WITH PACKING BELONGINGS, STATES SHE EXPECTS HER DAUGHTER TO ARRIVE "BETWEEN 5:30 AND 6:00." CMS INTACT, DRESSING C/D/I. PT DENIES PAIN AND NAUSEA. PT UP TO HER HUSBANDS ROOM TO VISIT, YUAN, FWW. NO ADDITIONAL REQUESTS OR COMPLAINTS AT THIS TIME. MEDICATION GIVEN. CALL LIGHT WITHIN REACH.
--- NOTE | 2018-12-13 18:27 | NUR ---
PATIENT SITTING UP IN CHAIR. PATIENT DRESS AND THE FINAL VITAL SIGNS WERE OBTAINED PRIOR TO DISCHARGE FROM THE UNIT
--- NOTE | 2018-12-13 18:33 | NUR ---
PTS FAMILY ARRIVED FOR DISCHARGE. PT DRESSES SELF WITH MINIMAL ASSISTANCE. VITALS TAKEN. PT WHEELED FROM UNIT WITH FAMILY AND ALL BELONGINGS. FAMILY AND PT STATE ALL THEIR QUESTIONS HAVE BEEN ANSWERED.
--- NOTE | 2018-12-14 07:22 | DS ---
[facility] [address] [place], [place] [address] Signed ADMISSION DATE: 12/03/2018 DISCHARGE DATE: 12/13/2018 ADMISSION DIAGNOSIS: Left tibial plateau fracture status post ORIF. DISCHARGE DIAGNOSIS: Left tibial plateau fracture status post ORIF. PROCEDURE PERFORMED DURING THIS HOSPITALIZATION: None. BRIEF HISTORY: Meghan is a 63-year-old female who suffered a tibial plateau fracture after her fell on her. She was admitted to the hospital, underwent the ORIF and has switched to swing bed on the . This was done for continued pain care as well as inpatient physical therapy to get her strong enough to go home. She has seen physical therapy daily and has done well. She currently is cleared for home toe-touch to 25% weightbearing on left lower extremity. She will continue range of motion in the hinged knee brace. She will continue on DVT prophylaxis of aspirin 325 p.o. b.i.d. She will be continued on her current pain medication, which is mostly Celebrex 200 b.i.d. as well as an occasional oxycodone 2.5. She will follow up with me at the end of the week for dressing change and suture removal. She will notify me of any problems in the interim. Nathalie Asif MD BA/DEANGELO /[id number] Copies: ~ Portions of this report were created using voice recognition software. There may be inadvertent computer error. Please read with context in mind. If there are any questions, please contact me. Electronically Signed By: NATHALIE ASIF MD 12/14/18 0722 PATIENT NAME: VERÓNICATAMMIEMEGHANBALAJI BENITES DISCHARGE SUMMARY DATE OF : 57 REPORT #: [id number] PHYSICIAN: NATHALIE ASIF MD PCP: NO PRIMARY CARE PHYSICIAN REPORT IS CONFIDENTIAL AND NOT TO BE RELEASED WITHOUT AUTHORIZATION
== END 2018-12-13 18:30 | disposition home or self-care (01) | DRG 561 ==
LOC: MS 09:30
PROVIDERS: ADMIT Specialist
DX: S82.142D Displaced bicondylar fracture of left tibia, subsequent encounter for closed fracture with routine healing (principal); R26.81 Unsteadiness on feet; Z98.890 Other specified postprocedural states; W18.30XD Fall on same level, unspecified, subsequent encounter
CPT/HCPCS: 97110; 97112; 97116; 97162

== ENCOUNTER 2021-08-06 12:41 | Emergency (ER) | payer OTHER ==
[~2021-08-06] VITALS: Ht 154.9 cm; Wt 55.3 kg
[~2021-08-06 12:41] MED LIST changes: +CELECOXIB200 MG PO; +OXYCODONE HCL5 MG PO; +SENNA LAX8.6 MG PO
== END 2021-08-06 16:34 | disposition home or self-care (01) ==
LOC: ED 12:41
DX: U07.1 COVID-19 (principal); Z79.82 Long term (current) use of aspirin; Z79.899 Other long term (current) drug therapy
CPT/HCPCS: 99283